=== PATIENT | female | born 1995 | race Caucasian/White ===

== ENCOUNTER 2018-05-30 14:23 | Emergency (ER) | payer OTHER, SELFPAY ==
[2018-05-30] MEDS: methylPREDNISolone 125 MG/2 ML VIAL IV (14:25)
[2018-05-30] MEDS: FAMOTIDINE 20 MG/50 ML PIGGYBACK 200 MG IV (14:25)
[2018-05-30 14:34] VITALS: BP 127/77; PULSE 87; RESP 22; TEMP 36.7; O2SAT 100; BMI 29.0
[2018-05-30] MEDS: EPINEPHrine 1 MG/ML AMPUL 0.3 MG IM (14:40)
[2018-05-30] MEDS: SODIUM CHLORIDE 0.9% 1,000 ML 1000 ML IV (14:41)
[2018-05-30] MEDS: ONDANSETRON 4 MG/2 ML INJ IV (14:41)
[2018-05-30 14:45] VITALS: BP 88/75; PULSE 78; RESP 18; O2SAT 98
[2018-05-30 15:00] VITALS: BP 137/59; PULSE 78; RESP 16; O2SAT 98
[2018-05-30 15:44] VITALS: BP 118/49; PULSE 79; RESP 14; O2SAT 98
--- NOTE | 2018-05-30 15:46 | ED.ALLEREA ---
HPI - Allergic Reaction General Chief complaint: Allergic Reaction Stated complaint: TROUBLE BREATHING,ALLERGIC REACTION Time Seen by Provider: 05/30/18 14:42 Source: patient Mode of arrival: ambulatory Limitations: no limitations History of Present Illness HPI narrative: Patient is a 23-year-old female with history of anaphylaxis presenting with difficulty breathing and sore throat. She had her hair dyed and cut today. She does have reaction to red dye appear it started with hives when she had throat pain. She is itching all over. She does not feel like her lips or tongue are swollen she does not have a hoarse voice MD complaint: allergic reaction Related Data Home Medications Medication Instructions Recorded Confirmed methylphenidate HCl [Concerta] 27 mg PO DAILY 05/30/18 05/30/18 Previous Rx's Medication Instructions Recorded epinephrine 0.3 mg IM Q10M PRN #1 each 05/30/18 Allergies Allergy/AdvReac Type Severity Reaction Status Date / Time diphenhydramine Allergy Verified 05/30/18 14:34 [From Devan] Review of Systems Review of Systems GENERAL: Denies chills, fatigue, malaise, fever, sweats, travel HEENT: Sore throat, see HPI RESPIRATORY: Denies dyspnea, cough, wheezing, hemoptysis, sputum. CARDIOVASCULAR: Denies chest pain, palpitations, orthopnea, edema GASTROINTESTINAL: Denies nausea, vomiting, abdominal pain, diarrhea, constipation, melena. : Denies dysuria, frequency, incontinence, hematuria, urinary retention, flank pain. MUSCULOSKELETAL: Denies weakness, joint pain, or bony pain SKIN: Hives, itching NEUROLOGIC: Denies weakness, dizziness, headache, numbness, change in speech, confusion PSYCHIATRIC: No concerning psychosocial issues. 12 point review of systems is negative except for those stated above and HPI Exam Initial Vital Signs Initial Vital Signs: Vital Signs Temperature 98.0 F 05/30/18 14:34 Pulse Rate 87 05/30/18 14:34 Respiratory Rate 22 05/30/18 14:34 Blood Pressure 127/77 05/30/18 14:34 Pulse Oximetry 100 05/30/18 14:34 GENERAL: Appears in moderate distress erythema is she HEENT: Head atraumatic,EOMI, pupils reactive, no swelling of tongue or lip, no hoarseness of voice CARDIOVASCULAR: Regular rate and rhythm without murmurs, rubs or gallops. RESPIRATORY: Breath sounds equal bilaterally, no wheezes rales or rhonchi. No stridor ABDOMEN: Soft, nontender. Normoactive bowel sounds all 4 quadrants. No guarding or rebound. EXTREMITIES: Normal range of motion, no clubbing or edema. Neurovascularly intact NEUROLOGICAL: Alert and oriented x4.Normal gait and speech. SKIN: Diffuse hives all over Course Orders Ordered: Discontinued Medications Epinephrine HCl (Adrenalin) 0.3 mg IM NOW ONE Stop: 05/30/18 14:37 Last Admin: 05/30/18 14:40 Dose: 0.3 mg Famotidine (Pepcid) 20 mg in 50 mls @ 200 mls/hr IV NOW ONE Stop: 05/30/18 14:50 Last Infusion: 05/30/18 14:47 Dose: 0 mls/hr Admin: 05/30/18 14:25 Dose: 200 mls/hr Sodium Chloride (Normal Saline 0.9%) 1,000 mls @ 1,000 mls/hr IV BOLUS ONE Stop: 05/30/18 15:36 Last Infusion: 05/30/18 15:44 Dose: 0 mls/hr Admin: 05/30/18 14:41 Dose: 1,000 mls/hr Methylprednisolone (Solu-Medrol 125 Mg Vial) 125 mg IV NOW ONE Stop: 05/30/18 14:42 Last Admin: 05/30/18 14:25 Dose: 125 mg Ondansetron HCl (Zofran) 4 mg IV NOW ONE Stop: 05/30/18 14:37 Last Admin: 05/30/18 14:41 Dose: 4 mg Vital Signs - 8 hr 05/30/18 14:34 05/30/18 14:45 05/30/18 15:00 Temperature 98.0 F Pulse Rate 87 78 78 Respiratory Rate 22 18 16 Blood Pressure 127/77 Blood Pressure [Left Arm] 88/75 L 137/59 L Pulse Oximetry 100 98 98 05/30/18 15:44 Temperature Pulse Rate 79 Respiratory Rate 14 Blood Pressure Blood Pressure [Left Arm] 118/49 L Pulse Oximetry 98 MDM - Allergic Reaction MDM Narrative Medical decision making narrative: Patient is monitored she overall is feeling much better. She feels ready and able to go home. I did write her for an EpiPen which she apparently has never had before. She is instructed how to use it. Discharge Plan Departure Patient Disposition: Home Clinical Impression: Anaphylaxis Discharge Date/Time: 05/30/18 16:04 Interventions: ED Discharge Assessment Last Done: 05/30/18 16:02 Instructions: Anaphylaxis Activity Restrictions/Additional Instructions: *You have been diagnosed with anaphylaxis *What to do: Recommend allergy testing if you have not yet done so *Continue to take medications as directed EpiPen give in the thigh if he should have throat swelling or difficulty breathing and allergic reaction *Follow up with your primary care provider in 2-3 days *Return to ER if you should have if you give yourself epi, difficulty breathing tongue swelling lip swelling or any new, worsening or concerning symptoms Prescriptions: New epinephrine 0.3 mg/0.3 mL auto-injector 0.3 mg IM Q10M PRN (Reason: anaphylaxis) Qty: 1 RF: 0 No Action methylphenidate HCl [Concerta] 27 mg tablet extended release 24hr 27 mg PO DAILY RF: 0 Referrals: Javan Lynn MD [Primary Care Provider] -
== END 2018-05-30 16:04 | disposition home or self-care (01) ==
PROVIDERS: Emergency Provider Emergency Medicine; Family Provider Family Medicine; PCP Family Medicine
DX: T78.2XXA Anaphylactic shock, unspecified, initial encounter (principal)
CPT/HCPCS: 36591; 96361; 96365; 96372; 96375; 99283; 99284; J0171; J2405; J2930

== ENCOUNTER → 2018-06-14 16:42 | Outpatient (CLI) | payer OTHER, SELFPAY | PROVIDERS: Family Provider Family Medicine; PCP Family Medicine; Visit Provider Allergy & Immunology | DX: T78.2XXA Anaphylactic shock, unspecified, initial encounter (principal) | CPT/HCPCS: 36415; 83520 ==

== ENCOUNTER 2018-06-19 18:36 | Emergency (ER) | payer OTHER, SELFPAY ==
[2018-06-19] VITALS (8 sets, daily range): BP systolic 91–155; BP diastolic 55–87; PULSE 69–91; RESP 14–26; TEMP 37; O2SAT 95–100
--- NOTE | 2018-06-19 18:50 | DI.RAD.S_ITS ---
PROCEDURE: XR CHEST 2V INDICATIONS: Chest pain. TECHNIQUE: 2 views of the chest were acquired. COMPARISON: None. FINDINGS: Surgical changes and devices: None. Lungs and pleura: No pleural effusions or pneumothorax. Lungs are clear. Mediastinum: Mediastinal contours are normal. Heart size is normal. Bones and chest wall: No suspicious bony abnormalities. Soft tissues appear unremarkable. IMPRESSION: No acute cardiopulmonary disease. Dictated by: Scott Tsai M.D. on 06/19/2018 at 19:09 Approved by: Scott Tsai M.D. on 06/19/2018 at 19:12
--- NOTE | 2018-06-19 18:52 | ED_ITS ---
HPI - Chest Pain General Chief Complaint: Chest Pain Stated Complaint: CHEST PAIN Time Seen by Provider: 06/19/18 18:51 Source: patient Mode of arrival: ambulatory Limitations: no limitations History of Present Illness HPI narrative: The patient experienced 2 anaphylactic reactions about 3 weeks ago, the reactions happened about 2 days apart. Following the 1st reaction she was not discharged on steroids although she received IV steroids. She has a H/ O an allergic reaction to Benadryl, she has known this since she was young child. She also has a allergy to red dye. Pepcid was used without adverse issues during her treatment of anaphylaxis at this facility. She does any other significant history of allergic reactions preceding the events of 3 weeks ago. There was no obvious ingestion or exposure to precipitate the event. She had not started any new medications. She is currently off all medications. She has seen an apartment leasing consultant, who wants her off steroids and antihistamines permitting future testing. 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 She arrives tonight with substernal chest pain. She tells me she has had a degree of discomfort in the central chest area since the 1st allergic reaction. This evening the pain is increased. The pain has moved to the left side of her chest a little. There is no radiation to the neck, shoulder or back. She has no dyspnea. She denies productive cough or fever. She has no hemoptysis. She does have mild epigastric pain, with nausea but no vomiting. She has no dietary intolerance of which she is aware. She regards herself to be generally good health. She has substernal chest discomfort with some radiation to the left mid chest. She has no dyspnea or cough. She has no hemoptysis. She has no airway discomfort. She has no rash. She has nausea, no vomiting. Related Data Previous Rx's Medication Instructions Recorded epinephrine 0.3 mg IM Q10M PRN #1 each 05/30/18 Allergies Allergy/AdvReac Type Severity Reaction Status Date / Time diphenhydramine Allergy Severe Hives Verified 06/19/18 18:44 [From Benadryl] Review of Systems Review of Systems All systems reviewed & are unremarkable except as noted in HPI and below Constitutional Denies chills, Denies fever(s), Reports headache(s), Denies lethargy and Denies weakness Eyes Denies blurry vision, Denies eye discharge, Denies irritation and Denies loss of vision ENT Ears, Nose, Mouth, and Throat: Denies change in voice, Denies facial pain, Reports headache(s), Denies neck pain and Denies sore throat Cardiovascular Reports as per HPI, Reports chest pain, Denies irregular heart rhythm, Denies lightheadedness, Denies palpitations, Denies dyspnea, Denies dyspnea on exertion and Denies orthopnea Respiratory Reports cough (Nonproductive), Denies dyspnea, Denies dyspnea on exertion and Denies wheezing Gastrointestinal Gastrointestinal: Reports abdominal pain (Epigastric tenderness.), Denies bloating, Reports loose stools and Denies vomiting Genitourinary Denies dysuria Musculoskeletal Denies neck pain Integumentary/Breasts Denies pruritus, Denies erythema, Denies rash and Denies wounds Neurologic Reports headache(s), Denies loss of vision and Denies weakness Endocrine Denies palpitations Allergic/Immunologic Denies wheezing PFSH Medical History Anaphylaxis (Acute) History of pre-eclampsia (Acute) No significant past surgical history (Acute) Social History Smoking Status: Never smoker Exam Initial Vital Signs Initial Vital Signs: Vital Signs Temperature 98.6 F 06/19/18 18:39 Pulse Rate 86 06/19/18 18:39 Respiratory Rate 18 06/19/18 18:39 Blood Pressure 155/87 H 06/19/18 18:39 Pulse Oximetry 100 06/19/18 18:39 Const General: cooperative, healthy appearing, comfortable and well developed Nutritional Appearance: well nourished Orientation: alert, awake, oriented x3 and not confused [facility] Head: normocephalic and atraumatic Nose: No nasal discharge Face and sinus: sinuses nontender, face symmetric and no sinus tenderness Mouth: oral mucosae normal and moist mucous membranes Teeth and gingiva: dentition normal Throat: tonsils normal and uvula midline Eyes General: appearance normal, both eyes and all related structures Eyelids: eyelids normal Conjunctivae: conjunctivae normal Sclera: sclerae normal Neck Neck: normal visual inspection, trachea midline and No lymphadenopathy Chest Chest: other (Slight tenderness to the mid sternal area with palpation.) Resp Effort & Inspection: normal respiratory effort, able to speak in complete sentences, no respiratory distress and no use of accessory muscles Auscultation: clear to auscultation bilaterally, no rales, no rhonchi and no wheezes Cardio Rate: regular rate Rhythm: regular rhythm Heart Sounds: S1 normal, S2 normal, no click, no gallops, no murmurs and no rubs Pulses: normal peripheral pulses GI Inspection: non-distended Palpation: soft, no hepatosplenomegaly, No guarding, No pulsatile mass and tender (Mild tenderness in the epigastric region without guarding or rebound.) Auscultation: normal bowel sounds Back/Spine/Pelvis Back: No CVA tenderness Skin General: no rashes or lesions noted, No jaundice and No petechiae Neuro General: alert, oriented x3, gait normal and no focal motor deficits Speech: speech normal Extrem General: full ROM, no clubbing, cyanosis or edema, no pedal edema and no calf tenderness Course Course Narrative: The patient was recently seen here for 1 of 2 allergic reaction/anaphylaxis events. She is not presenting with allergic reaction type symptoms at this time. She has had chest discomfort since the recent events. The chest discomfort has increased today. The patient requested a tryptase level. That lab is a send out from this facility with a 3-5 day turn around time. She is not having an allergic reaction, the test would be of little use at this time. A tryptase was ordered at the time of her last visit when she was treated as an allergic reaction. That tryptase level was normal. Initial lab testing and CXR were benign, a D-dimer was added. The D-dimer was subtly elevated. Although the workup was otherwise benign and she has no obvious risk for PE, a CTA of the chest was done due to the persistent nature of her discomfort. That test showed only mild reactive adenopathy, probably not a source of her pain. Due to the location and nature of her pain, I think she may have esophagitis. However she did not improve with GI cocktail or Protonix during the time of her ER stay. From the workup there is no evidence of an acute coronary event, infection/pneumonia, PE, mass or obvious cardiopulmonary disease. The etiology of her discomfort remains unclear, however musculoskeletal versus esophageal discomfort seen probable. She has an EpiPen at home. The patient became irritated at what she perceived was inadequate discussion of the D-dimer. She was made aware that rest her labs are benign, the chest x-ray and 2 EKGs are normal. The minimal adenopathy in the chest CT was discussed. The lack of immediate life-threatening disease was discussed. I tried to suggest she also keep Pepcid and perhaps steroids at home. My attempts to engage her with what I considered pertinent discharge information regarding management of allergic reactions was significantly blunted by the patient's repeat interruptions, questioning my knowledge of anaphylaxis and mast cell disease, and rejection of the discussion. The medications were not prescribed. Orders Ordered: ED Orders 06/19/18 18:50 XR chest 2V Stat EKG-12 Lead Stat 06/19/18 19:07 Complete Blood Count AUTO DIFF Stat Comprehensive Metabolic Panel Stat D Dimer Stat Lipase Stat Partial Thromboplastin Time Stat Prothrombin Time INR Stat Troponin & CK Cardiac Panel Stat 06/19/18 20:54 CT angio chest PE protocol Stat Discontinued Medications Al Hydrox/Mg Hydrox/Simethicone 20 ml/ Lidocaine HCl 15 ml 0 ml PO NOW ONE Stop: 06/19/18 19:28 Last Admin: 06/19/18 19:43 Dose: 20 ml Sodium Chloride (Normal Saline 0.9%) 1,000 mls @ 250 mls/hr IV CONT MARSHA Last Infusion: 06/19/18 23:31 Dose: 0 mls/hr Admin: 06/19/18 21:02 Dose: 250 mls/hr Ketorolac Tromethamine (Toradol) 30 mg IV NOW ONE Stop: 06/19/18 21:56 Last Admin: 06/19/18 23:31 Dose: Not Given Ondansetron HCl (Zofran) 4 mg IV NOW ONE Stop: 06/19/18 19:14 Last Admin: 06/19/18 19:18 Dose: 4 mg Pantoprazole Sodium (Protonix) 40 mg IV NOW ONE Stop: 06/19/18 19:58 Last Admin: 06/19/18 20:06 Dose: 40 mg Vital Signs - 8 hr 06/19/18 18:39 06/19/18 19:32 06/19/18 20:08 Temperature 98.6 F Pulse Rate 86 80 91 H Respiratory Rate 18 19 26 H Blood Pressure 155/87 H Blood Pressure [Right Arm] 124/55 L 116/63 Pulse Oximetry 100 96 97 06/19/18 21:07 06/19/18 21:32 06/19/18 21:52 Temperature Pulse Rate 82 79 86 Respiratory Rate 21 19 14 Blood Pressure Blood Pressure [Right Arm] 119/61 91/69 123/71 Pulse Oximetry 99 100 98 06/19/18 22:45 06/19/18 23:33 Temperature Pulse Rate 69 70 Respiratory Rate 22 14 Blood Pressure 128/72 Blood Pressure [Right Arm] 138/57 L Pulse Oximetry 95 95 MDM - Chest Pain Lab Data D-dimer 325. Result diagrams: 06/19/18 19:07 06/19/18 19:07 Lab Results 06/19/18 06/19/18 06/19/18 Range/Units 19:07 19:07 19:07 WBC 7.3 (4.5-11.0) X10^3/uL RBC 4.18 (4.0-5.2) X10^6/uL Hgb 13.1 (12.0-16.0) g/dL Hct 37.5 (36-46) % MCV 89.8 (80-100) fL MCH 31.3 (26-34) PG MCHC 34.9 (30-36) % RDW 15.4 H (11.6-14.8) % Plt Count 199 (150-400) X10^3/uL Neut % (Auto) 59.5 (50-75) % Lymph % (Auto) 31.6 (25-40) % [place] % (Auto) 6.7 (3-14) % Eos % (Auto) 1.7 L (2-4) % Baso % (Auto) 0.5 (0-2) % Neut # (Auto) 4400 (9812-7657) /uL PT 11.3 (10.1-12.7) SECONDS INR 1.0 (0.9-1.3) APTT 37 H (26.4-36.2) SECONDS D-Dimer (<230) ng/mL Sodium 142 (137-145) mmol/L Potassium 3.9 (3.4-5.1) mmol/L Chloride 105 (98-107) mmol/L Carbon Dioxide 24 (22-32) mmol/L BUN 10 (7-17) mg/dL Creatinine 0.80 (0.52-1.04) mg/dL Estimated GFR > 60.0 (>60) mL/min BUN/Creatinine Ratio 12.5 (6-22) Glucose 91 (70-100) mg/dL Calcium 10.0 (8.4-10.2) mg/dL Total Bilirubin 1.1 (0.2-1.3) mg/dL AST 23 (14-36) IU/L ALT 23 (9-52) IU/L Alkaline Phosphatase 71 (38-126) U/L Total Creatine Kinase 81 (30-135) U/L CK-MB (CK-2) TNP CK-MB (CK-2) Rel Index TNP Troponin I < 0.012 (0.01-0.034) ng/mL Total Protein 7.6 (6.3-8.2) g/dL Albumin 4.9 (3.5-5.0) g/dL Globulin 2.7 (1.7-4.1) g/dL Albumin/Globulin Ratio 1.8 (1.0-2.8) Lipase 48 (23-300) U/L 12/17/18 Range/Units 19:07 WBC (4.5-11.0) X10^3/uL RBC (4.0-5.2) X10^6/uL Hgb (12.0-16.0) g/dL Hct (36-46) % MCV (80-100) fL MCH (26-34) PG MCHC (30-36) % RDW (11.6-14.8) % Plt Count (150-400) X10^3/uL Neut % (Auto) (50-75) % Lymph % (Auto) (25-40) % [place] % (Auto) (3-14) % Eos % (Auto) (2-4) % Baso % (Auto) (0-2) % Neut # (Auto) (7704-2844) /uL PT (10.1-12.7) SECONDS INR (0.9-1.3) APTT (26.4-36.2) SECONDS D-Dimer 325 H (<230) ng/mL Sodium (137-145) mmol/L Potassium (3.4-5.1) mmol/L Chloride (98-107) mmol/L Carbon Dioxide (22-32) mmol/L BUN (7-17) mg/dL Creatinine (0.52-1.04) mg/dL Estimated GFR (>60) mL/min BUN/Creatinine Ratio (6-22) Glucose (70-100) mg/dL Calcium (8.4-10.2) mg/dL Total Bilirubin (0.2-1.3) mg/dL AST (14-36) IU/L ALT (9-52) IU/L Alkaline Phosphatase (38-126) U/L Total Creatine Kinase (30-135) U/L CK-MB (CK-2) CK-MB (CK-2) Rel Index Troponin I (0.01-0.034) ng/mL Total Protein (6.3-8.2) g/dL Albumin (3.5-5.0) g/dL Globulin (1.7-4.1) g/dL Albumin/Globulin Ratio (1.0-2.8) Lipase (23-300) U/L Imaging Data Chest x-ray: Radiologist's impression: Normal CT scan - chest: Radiologist's impression: [address] [address] [address] Scan Report Signed Patient: Manisha Hope MR#: [id number] : 1995 Acct:[id number] Age/Sex: 23 / F Date of Service: 06/19/18 Loc: ED Accession Number: [id number] Procedure: CT angio chest PE protocol Ordering Provider: Angel Poe M.D. PROCEDURE: CT ANGIO CHEST PE PROTOCOL INDICATIONS: atypical chest pain TECHNIQUE: After the administration of intravenous contrast, 2 mm thick sections acquired from the pulmonary apices to the posterior costophrenic angles. 3-dimensional maximum intensity projection (MIP) coronal and sagittal reformats were then acquired through the thorax. For radiation dose reduction, the following was used: automated exposure control, adjustment of mA and/or kV according to patient size. COMPARISON: None. FINDINGS: Image quality: Excellent. Pulmonary arteries: Pulmonary arteries are normal in size, and demonstrate no intraluminal filling defects to suggest central pulmonary embolism. Lungs and pleura: Lungs are clear. No pleural effusions or pneumothorax. Central and peripheral airways are patent. Mediastinum: Heart size is normal, without pericardial effusion. There is mild mediastinal and supraclavicular lymphadenopathy. Thoracic aorta is normal in caliber and enhancement. Hazy soft tissue in the anterior mediastinum most consistent with residual thymic tissue. Bones and chest wall: No suspicious bony lesions. Ribs and thoracic spine appear intact throughout. No axillary adenopathy. Abdomen: Visualized upper abdominal solid organs appear normal in the early arterial phase of enhancement. IMPRESSION: #1. No segmental or larger pulmonary emboli. #2. Mild mediastinal and supraclavicular lymphadenopathy, which is nonspecific and possibly reactive. Clinical correlation suggested. Dictated by: Scott Tsai M.D. on 06/19/2018 at 22:31 Approved by: Scott Tsai M.D. on 06/19/2018 at 22:43 ECG Data Attestation: I personally reviewed and interpreted this ECG as follows: (Normal sinus rhythm rate 78 bpm. Voltage criteria consistent with LVH. Normal ST T wave segments. No interval changes, no ectopy.) Discharge Plan Departure Patient Disposition: Home Clinical Impression: Atypical chest pain Discharge Date/Time: 06/19/18 23:49 Interventions: ED Discharge Assessment Last Done: 06/19/18 23:33 Instructions: DI for Atypical Chest Pain Activity Restrictions/Additional Instructions: The chest pain is of a an duration matching the time of your reactions. There is no evidence of pulmonary infection, active cardiac disease, blood clots, or tumors in your chest to cause the discomfort. By your clinical presentation there is no evidence of an allergic reaction at this moment. Your esophagus may or may not be a source of the discomfort. The one finding, as we discussed on CT, was mild enlargement of lymph nodes, this is likely reactive lymphadenopathy. You have no clinical evidence of significant active infection. The lymph nodes are only mildly enlarged, and not likely a source of pain. If you have recurrence of an allergic reaction, use your Epi pen and call 911. Consider having Pepcid available at home. Prescriptions: No Action epinephrine 0.3 mg/0.3 mL auto-injector 0.3 mg IM Q10M PRN (Reason: anaphylaxis) Qty: 1 RF: 0
[2018-06-19 19:13] LABS: Add Manual Diff / Slide Review NO; Basophils Percent Auto 0.5 % (0-2); Eosinophils Percent Auto 1.7 % (2-4); Hematocrit 37.5 % (36-46); Hemoglobin 13.1 g/dL (12.0-16.0); Lymphocytes Percent Auto 31.6 % (25-40); Mean Corpuscular HGB Conc 34.9 % (30-36); Mean Corpuscular Hemoglobin 31.3 PG (26-34); Mean Corpuscular Volume 89.8 fL (80-100); Monocytes Percent Auto 6.7 % (3-14); Neutrophils Absolute Auto 4400 /uL (1500-7000); Neutrophils Percent Auto 59.5 % (50-75); Platelet Count 199 X10^3/uL (150-400); Red Blood Cell Count 4.18 X10^6/uL (4.0-5.2); Red Cell Distribution Width 15.4 % (11.6-14.8); White Blood Cell Count 7.3 X10^3/uL (4.5-11.0)
[2018-06-19] MEDS: ONDANSETRON 4 MG/2 ML INJ IV (19:18)
[2018-06-19 19:20] LABS: Prothrombin Time 11.3 SECONDS (10.1-12.7)
[2018-06-19 19:23] LABS: PTT Partial Thromboplastin Tim 37 SECONDS (26.4-36.2)
[2018-06-19 19:25] LABS: Alanine Aminotransferase 23 IU/L (9-52); Albumin 4.9 g/dL (3.5-5.0); Albumin Globulin Ratio 1.8 (1.0-2.8); Alkaline Phosphatase 71 U/L (38-126); Aspartate Aminotransferase 23 IU/L (14-36); BUN Creatinine Ratio 12.5 (6-22); Bilirubin Total 1.1 mg/dL (0.2-1.3); Blood Urea Nitrogen 10 mg/dL (7-17); Carbon Dioxide 24 mmol/L (22-32); Chloride 105 mmol/L (98-107); Creatine Kinase 81 U/L (30-135); Estimated Glomerular Filt Rate > 60.0 mL/min (>60); Globulin 2.7 g/dL (1.7-4.1); Glucose 91 mg/dL (70-100); HEMOLYSIS < 15 (0-50); Lipase 48 U/L (23-300); Potassium 3.9 mmol/L (3.4-5.1); Sodium 142 mmol/L (137-145); Total Protein 7.6 g/dL (6.3-8.2)
[2018-06-19 19:36] LABS: Troponin I < 0.012 ng/mL (0.01-0.034)
[2018-06-19] MEDS: MAG HYDROX/ALUMINUM/SIMETH SUS 20 ML, LIDOCAINE VISCOUS 2% 15 ML PO (19:43)
--- NOTE | 2018-06-19 19:51 | PC.NURSE ---
Pt reports pain still 5/10. Medicated with GI cocktail per order. NAD, will monitor.
--- NOTE | 2018-06-19 19:51 | PC.NURSE ---
Pt attempting to drink all of the GI cocktail, she states I can feel where it's numbing and the pain is next to it. She motioned to midline when she said I feel where it's numbing and gestured to the left of midline when stating the pain is next to it.
[2018-06-19] MEDS: PANTOPRAZOLE 40 MG VIAL IV (20:06)
[2018-06-19 20:19] LABS: D Dimer 325 ng/mL (<230)
--- NOTE | 2018-06-19 20:54 | DI.CT.S_ITS ---
PROCEDURE: CT ANGIO CHEST PE PROTOCOL INDICATIONS: atypical chest pain TECHNIQUE: After the administration of intravenous contrast, 2 mm thick sections acquired from the pulmonary apices to the posterior costophrenic angles. 3-dimensional maximum intensity projection (MIP) coronal and sagittal reformats were then acquired through the thorax. For radiation dose reduction, the following was used: automated exposure control, adjustment of mA and/or kV according to patient size. COMPARISON: None. FINDINGS: Image quality: Excellent. Pulmonary arteries: Pulmonary arteries are normal in size, and demonstrate no intraluminal filling defects to suggest central pulmonary embolism. Lungs and pleura: Lungs are clear. No pleural effusions or pneumothorax. Central and peripheral airways are patent. Mediastinum: Heart size is normal, without pericardial effusion. There is mild mediastinal and supraclavicular lymphadenopathy. Thoracic aorta is normal in caliber and enhancement. Hazy soft tissue in the anterior mediastinum most consistent with residual thymic tissue. Bones and chest wall: No suspicious bony lesions. Ribs and thoracic spine appear intact throughout. No axillary adenopathy. Abdomen: Visualized upper abdominal solid organs appear normal in the early arterial phase of enhancement. IMPRESSION: #1. No segmental or larger pulmonary emboli. #2. Mild mediastinal and supraclavicular lymphadenopathy, which is nonspecific and possibly reactive. Clinical correlation suggested. Dictated by: Scott sTai M.D. on 06/19/2018 at 22:31 Approved by: Scott Tsai M.D. on 06/19/2018 at 22:43
[2018-06-19] MEDS: SODIUM CHLORIDE 0.9% 1,000 ML 250 ML IV (21:02)
--- NOTE | 2018-06-19 21:48 | PC.NURSE ---
Pt reported increasing pain. Now a 7/10 and radiating to the left chest. Provider notified, repeat ECG requested.
== END 2018-06-19 23:49 | disposition home or self-care (01) ==
PROVIDERS: Emergency Provider Emergency Medicine; Family Provider Family Medicine; PCP Family Medicine
DX: R07.89 Other chest pain (principal)
CPT/HCPCS: 36591; 71046; 71275; 80053; 82550; 83690; 84484; 85025; 85379; 85610; 85730; 93005; 96361; 96374; 96375; 99284; 99285; C9113; J2405; Q9967

== ENCOUNTER 2018-09-23 08:13 | Emergency (ER) | payer OTHER, SELFPAY ==
[2018-09-23 08:15] VITALS: BMI 27.4
[2018-09-23 08:37] VITALS: BP 113/56; PULSE 72; RESP 16; TEMP 36.6; O2SAT 97; BMI 27.4
[2018-09-23 09:02] LABS: Appearance Urine UA CLEAR; Bilirubin Urine UA NEGATIVE (NEGATIVE); Color Urine UA YELLOW; Glucose Urine UA NEGATIVE (Negative); Ketones Urine UA NEGATIVE (NEGATIVE); Leukocyte Esterase Urine UA TRACE (NEGATIVE); Nitrite Urine UA NEGATIVE (Negative); Occult Blood Urine UA 3+ (Negative); Protein Urine UA NEGATIVE (Negative); Urobilinogen Urine UA 0.2 E.U./dL (0.2); pH Urine UA 6.5 (4.5-8.0)
[2018-09-23 09:04] LABS: Pregnancy Test Urine Positive (Negative)
--- NOTE | 2018-09-23 09:07 | ED.FEMALEGU ---
HPI - Female Genitourinary General Chief complaint: Urogenital-Female Stated complaint: kidney infection Time Seen by Provider: 09/23/18 08:39 Source: patient Mode of arrival: ambulatory Limitations: no limitations History of Present Illness HPI Narrative: Patient is a 23-year-old female presents with kidney infection. She says she has had kidney pain in urinary urgency ongoing for about 1 week. She has had chills for the last 24 hr. She saw her PCP yesterday started her on Bactrim she has taken 1 dose. This morning she got up to use the restroom and she suddenly collapsed in the bathroom. Brief loss of consciousness no injury from the fall. Overall not feeling great. Pain in her left flank area is non radiating around to the front. 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 She has had GI bleeding off and on for the last 4 months. She also states she had a miscarriage last week. She was approximately 11 weeks. She was seen evaluated by her OBGYN. She initially had cramping and bleeding. She says overall that has improved. She has no vaginal discharge. MD Complaint: dysuria and UTI Onset (ago): week(s) (1) Female Urogenital Radiation: L Flank Severity: mild Related Data Previous Rx's Medication Instructions Recorded epinephrine 0.3 mg IM Q10M PRN #1 each 05/30/18 Allergies Allergy/AdvReac Type Severity Reaction Status Date / Time diphenhydramine Allergy Severe Hives Verified 09/23/18 08:21 [From Benadryl] Review of Systems Review of Systems ROS Unobtainable: All systems reviewed & are unremarkable except as noted in HPI and below Constitutional Reports body ache(s), Reports chills and Denies fever(s) Eyes Denies change in vision, Denies eye discharge, Denies irritation and Denies loss of vision Cardiovascular Denies chest pain, Reports syncope, Denies irregular heart rhythm, Denies lightheadedness, Denies palpitations, Denies dyspnea, Denies dyspnea on exertion and Denies orthopnea Respiratory Denies cough, Denies dyspnea, Denies dyspnea on exertion and Denies wheezing Gastrointestinal Gastrointestinal: Denies abdominal pain, Denies diarrhea, Denies nausea and Denies vomiting Genitourinary Reports flank pain (Left) Musculoskeletal Denies back pain, Denies muscle weakness, Denies numbness and Denies tingling Integumentary/Breasts Denies pruritus, Denies erythema, Denies rash and Denies wounds Neurologic Reports syncope, Denies loss of vision, Denies numbness and Denies tingling Endocrine Denies palpitations Allergic/Immunologic Denies wheezing [facility] Medical History Anaphylaxis (Acute) History of pre-eclampsia (Acute) No significant past surgical history (Acute) Social History Smoking Status: Never smoker Social History Smoking Status: Never smoker Exam Initial Vital Signs Initial Vital Signs: Vital Signs Temperature 97.8 F 09/23/18 08:37 Pulse Rate 72 09/23/18 08:37 Respiratory Rate 16 09/23/18 08:37 Blood Pressure 113/56 L 09/23/18 08:37 Pulse Oximetry 97 09/23/18 08:37 GENERAL: Well-appearing, well-nourished and in no acute distress. HEENT: Head atraumatic,EOMI, pupils reactive, face symmetric, moist mucous membranes CARDIOVASCULAR: Regular rate and rhythm without murmurs, rubs or gallops. RESPIRATORY: Breath sounds equal bilaterally, no wheezes rales or rhonchi. ABDOMEN: Soft, nontender. Normoactive bowel sounds all 4 quadrants. No guarding or rebound. : Left CVA tenderness EXTREMITIES: Normal range of motion, no clubbing or edema. Neurovascularly intact NEUROLOGICAL: Alert and oriented x4.Normal gait and speech. SKIN: Warm, dry, no laceration, no petechiae, no rashes or lesions. Course Orders Ordered: ED Orders 09/23/18 08:24 EKG-12 Lead Routine 09/23/18 08:30 Basic Metabolic Panel Stat Complete Blood Count AUTO DIFF Stat 09/23/18 08:53 Test Urine Stat UA Complete [Urinalysis and Microscopic] Stat Urine Culture Stat 09/23/18 10:46 US pelvic complete Stat Discontinued Medications Sodium Chloride (Normal Saline 0.9%) 1,000 mls @ 1,000 mls/hr IV BOLUS ONE Stop: 09/23/18 10:06 Last Infusion: 09/23/18 10:43 Dose: 0 mls/hr Admin: 09/23/18 09:29 Dose: 1,000 mls/hr Consultations Consultation #1: Dr. Garcia, on-call for Dr. Paige, at this time no reason for D&C. No bleeding or significant pain treat infection. Time: 12:13 Vital Signs - 8 hr 09/23/18 08:37 09/23/18 10:00 09/23/18 10:30 Temperature 97.8 F Pulse Rate 72 73 66 Respiratory Rate 16 18 16 Blood Pressure 113/56 L Blood Pressure [Left Arm] 126/70 123/55 L Pulse Oximetry 97 100 100 09/23/18 11:00 09/23/18 12:25 Temperature Pulse Rate 66 65 Respiratory Rate 18 16 Blood Pressure Blood Pressure [Left Arm] 129/66 131/72 Pulse Oximetry 99 MDM - Female Genitourinary Lab Data Attestation: I reviewed the patient's lab results. Result diagrams: 09/23/18 08:30 09/23/18 08:30 Lab Results 09/23/18 09/23/18 09/23/18 Range/Units 08:30 08:30 08:53 WBC 5.6 (4.5-11.0) X10^3/uL RBC 3.68 L (4.0-5.2) X10^6/uL Hgb 11.5 L (12.0-16.0) g/dL Hct 33.5 L (36-46) % MCV 90.9 (80-100) fL MCH 31.3 (26-34) PG MCHC 34.4 (30-36) % RDW 16.3 H (11.6-14.8) % Plt Count 219 (150-400) X10^3/uL Neut % (Auto) 60.4 (50-75) % Lymph % (Auto) 30.5 (25-40) % [place] % (Auto) 6.7 (3-14) % Eos % (Auto) 1.8 L (2-4) % Baso % (Auto) 0.6 (0-2) % Neut # (Auto) 3400 (6216-0859) /uL Lymph # (Auto) 1700 (9975-7379) /uL [place] # (Auto) 400 (0-900) /uL Eos # (Auto) 100 (0-450) /uL Baso # (Auto) 0 (0-100) /uL Sodium 140 (137-145) mmol/L Potassium 4.3 (3.4-5.1) mmol/L Chloride 108 H (98-107) mmol/L Carbon Dioxide 23 (22-32) mmol/L BUN 15 (7-17) mg/dL Creatinine 0.70 (0.52-1.04) mg/dL Estimated GFR > 60.0 (>60) mL/min BUN/Creatinine Ratio 21.4 (6-22) Glucose 100 (70-100) mg/dL Calcium 9.7 (8.4-10.2) mg/dL Urine Color Urine Appearance Urine pH (4.5-8.0) Ur Specific [place] (1.000-1.035) Urine Protein (Negative) Urine Glucose (UA) (Negative) g/dL Urine Ketones (NEGATIVE) Urine Occult Blood (Negative) Urine Nitrate (Negative) Urine Bilirubin (NEGATIVE) Urine Urobilinogen (0.2) E.U./dL Ur Leukocyte Esterase (NEGATIVE) Urine RBC (0-5/HPF) Urine WBC (0-5/HPF) Ur Squamous Epith Cells Urine Bacteria (None) Ur Culture Indicated? Urine Test Positive H (Negative) 09/23/18 Range/Units 08:53 WBC (4.5-11.0) X10^3/uL RBC (4.0-5.2) X10^6/uL Hgb (12.0-16.0) g/dL Hct (36-46) % MCV (80-100) fL MCH (26-34) PG MCHC (30-36) % RDW (11.6-14.8) % Plt Count (150-400) X10^3/uL Neut % (Auto) (50-75) % Lymph % (Auto) (25-40) % [place] % (Auto) (3-14) % Eos % (Auto) (2-4) % Baso % (Auto) (0-2) % Neut # (Auto) (5597-5718) /uL Lymph # (Auto) (2528-1069) /uL [place] # (Auto) (0-900) /uL Eos # (Auto) (0-450) /uL Baso # (Auto) (0-100) /uL Sodium (137-145) mmol/L Potassium (3.4-5.1) mmol/L Chloride (98-107) mmol/L Carbon Dioxide (22-32) mmol/L BUN (7-17) mg/dL Creatinine (0.52-1.04) mg/dL Estimated GFR (>60) mL/min BUN/Creatinine Ratio (6-22) Glucose (70-100) mg/dL Calcium (8.4-10.2) mg/dL Urine Color Yellow Urine Appearance Clear Urine pH 6.5 (4.5-8.0) Ur Specific Counselor 1.020 (1.000-1.035) Urine Protein Negative (Negative) Urine Glucose (UA) Negative (Negative) g/dL Urine Ketones Negative (NEGATIVE) Urine Occult Blood 3+ H (Negative) Urine Nitrate Negative (Negative) Urine Bilirubin Negative (NEGATIVE) Urine Urobilinogen 0.2 (0.2) E.U./dL Ur Leukocyte Esterase Trace H (NEGATIVE) Urine RBC 1-5/hpf (0-5/HPF) Urine WBC 0-1/hpf (0-5/HPF) Ur Squamous Epith Cells 1-5 /hpf Urine Bacteria Occasional (0-1) (None) Ur Culture Indicated? Specimen cultured Urine Test (Negative) Imaging Data Pelvic ultrasound: Radiologist's impression: PROCEDURE: US PELVIC COMPLETE INDICATIONS: RECENT MISCARRIAGE, SYNCOPE TODAY TECHNIQUE: Real-time scanning was performed of the pelvic organs, with image documentation. Additional endovaginal scanning was necessary due to incomplete visualization of the adnexal and endometrial structures by transabdominal scanning. COMPARISON: None. FINDINGS: Transabdominal scanning: Limited scanning through the kidneys shows no hydronephrosis. No pathologic free abdominal or pelvic fluid. Endovaginal scanning: Uterus: Uterus is normal in size at 7.1 x 4.3 x 5.6 cm. The endometrium measures 13.9 mm in combined thickness. There is increased vascularity in the lesion. Ovaries: Ovaries are normal in size and echotexture. The right ovary measures 3.6 x 1.5 x 2.2 cm. The left ovary measures 2.3 x 1.4 x 1.5 cm. IMPRESSION: Thickened endometrium with hyperemia. Cannot rule out retained products of conception. Dictated by: Dana Moffett M.D. on 09/23/2018 at 12:08 [facility] Narrative Medical decision making narrative: Patient still feels the same. She has been offered Tylenol or Motrin multiple times and has refused. I have explained at length that it will take time for her antibiotics to kick in and help her pain and kidney infection. At this time she likely had a vasovagal reaction due to pain and possibly some slight dehydration. She denies any abdominal pain she states that her vaginal bleeding and cramping has improved overall from last week. No indication of ectopic or retained products. Discharge Plan Departure Patient Disposition: Home Clinical Impression: UTI (urinary tract infection) Qualifiers: Urinary tract infection type: acute pyelonephritis Qualified Code(s): N10 - Acute pyelonephritis Discharge Date/Time: 09/23/18 12:33 Interventions: ED Discharge Assessment Last Done: 09/23/18 12:32 Instructions: DI for Kidney Infection Activity Restrictions/Additional Instructions: *You have been diagnosed with kidney infection, vasovagal reaction *What to do: It will take 2-3 days for antibiotics to kick in and spoke you're kidney infection. He likely passed out from pain in dehydration. At this time increase her fluid intake. *Continue to take medications as directed Continue Bactrim 1 pill twice a day for 5 days as previously prescribed *Follow up with your primary care provider in 2-3 days *Return to ER if you should have recurrent episode of passing out, increasing pain or any new, worsening or concerning symptoms Prescriptions: No Action epinephrine 0.3 mg/0.3 mL auto-injector 0.3 mg IM Q10M PRN (Reason: anaphylaxis) Qty: 1 RF: 0 Referrals: Javan Lynn MD [Primary Care Provider] - Tommy Paige MD [Non-Staff] -
--- NOTE | 2018-09-23 09:10 | ED_ITS ---
HPI - Female Genitourinary General Chief complaint: Urogenital-Female Stated complaint: kidney infection Time Seen by Provider: 09/23/18 08:39 Source: patient Mode of arrival: ambulatory Limitations: no limitations History of Present Illness HPI Narrative: Patient is a 23-year-old female presents with kidney infection. She says she has had kidney pain in urinary urgency ongoing for about 1 week. She has had chills for the last 24 hr. She saw her PCP yesterday started her on Bactrim she has taken 1 dose. This morning she got up to use the restroom and she suddenly collapsed in the bathroom. Brief loss of consciousness no injury from the fall. Overall not feeling great. Pain in her left flank area is non radiating around to the front. 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 She has had GI bleeding off and on for the last 4 months. She also states she had a miscarriage last week. She was approximately 11 weeks. She was seen evaluated by her OBGYN. She initially had cramping and bleeding. She says overall that has improved. She has no vaginal discharge. MD Complaint: dysuria and UTI Onset (ago): week(s) (1) Female Urogenital Radiation: L Flank Severity: mild Related Data Previous Rx's Medication Instructions Recorded epinephrine 0.3 mg IM Q10M PRN #1 each 05/30/18 Allergies Allergy/AdvReac Type Severity Reaction Status Date / Time diphenhydramine Allergy Severe Hives Verified 09/23/18 08:21 [From Benadryl] Review of Systems Review of Systems ROS Unobtainable: All systems reviewed & are unremarkable except as noted in HPI and below Constitutional Reports body ache(s), Reports chills and Denies fever(s) Eyes Denies change in vision, Denies eye discharge, Denies irritation and Denies loss of vision Cardiovascular Denies chest pain, Reports syncope, Denies irregular heart rhythm, Denies lightheadedness, Denies palpitations, Denies dyspnea, Denies dyspnea on exertion and Denies orthopnea Respiratory Denies cough, Denies dyspnea, Denies dyspnea on exertion and Denies wheezing Gastrointestinal Gastrointestinal: Denies abdominal pain, Denies diarrhea, Denies nausea and Denies vomiting Genitourinary Reports flank pain (Left) Musculoskeletal Denies back pain, Denies muscle weakness, Denies numbness and Denies tingling Integumentary/Breasts Denies pruritus, Denies erythema, Denies rash and Denies wounds Neurologic Reports syncope, Denies loss of vision, Denies numbness and Denies tingling Endocrine Denies palpitations Allergic/Immunologic Denies wheezing [facility] Medical History Anaphylaxis (Acute) History of pre-eclampsia (Acute) No significant past surgical history (Acute) Social History Smoking Status: Never smoker Social History Smoking Status: Never smoker Exam Initial Vital Signs Initial Vital Signs: Vital Signs Temperature 97.8 F 09/23/18 08:37 Pulse Rate 72 09/23/18 08:37 Respiratory Rate 16 09/23/18 08:37 Blood Pressure 113/56 L 09/23/18 08:37 Pulse Oximetry 97 09/23/18 08:37 GENERAL: Well-appearing, well-nourished and in no acute distress. HEENT: Head atraumatic,EOMI, pupils reactive, face symmetric, moist mucous membranes CARDIOVASCULAR: Regular rate and rhythm without murmurs, rubs or gallops. RESPIRATORY: Breath sounds equal bilaterally, no wheezes rales or rhonchi. ABDOMEN: Soft, nontender. Normoactive bowel sounds all 4 quadrants. No guarding or rebound. : Left CVA tenderness EXTREMITIES: Normal range of motion, no clubbing or edema. Neurovascularly intact NEUROLOGICAL: Alert and oriented x4.Normal gait and speech. SKIN: Warm, dry, no laceration, no petechiae, no rashes or lesions. Course Orders Ordered: ED Orders 09/23/18 08:24 EKG-12 Lead Routine 09/23/18 08:30 Basic Metabolic Panel Stat Complete Blood Count AUTO DIFF Stat 09/23/18 08:53 Test Urine Stat UA Complete [Urinalysis and Microscopic] Stat Urine Culture Stat 09/23/18 10:46 US pelvic complete Stat Discontinued Medications Sodium Chloride (Normal Saline 0.9%) 1,000 mls @ 1,000 mls/hr IV BOLUS ONE Stop: 09/23/18 10:06 Last Infusion: 09/23/18 10:43 Dose: 0 mls/hr Admin: 09/23/18 09:29 Dose: 1,000 mls/hr Consultations Consultation #1: Dr. Garcia, on-call for Dr. Paige, at this time no reason for D&C. No bleeding or significant pain treat infection. Time: 12:13 Vital Signs - 8 hr 09/23/18 08:37 09/23/18 10:00 09/23/18 10:30 Temperature 97.8 F Pulse Rate 72 73 66 Respiratory Rate 16 18 16 Blood Pressure 113/56 L Blood Pressure [Left Arm] 126/70 123/55 L Pulse Oximetry 97 100 100 09/23/18 11:00 09/23/18 12:25 Temperature Pulse Rate 66 65 Respiratory Rate 18 16 Blood Pressure Blood Pressure [Left Arm] 129/66 131/72 Pulse Oximetry 99 MDM - Female Genitourinary Lab Data Attestation: I reviewed the patient's lab results. Result diagrams: 09/23/18 08:30 09/23/18 08:30 Lab Results 09/23/18 09/23/18 09/23/18 Range/Units 08:30 08:30 08:53 WBC 5.6 (4.5-11.0) X10^3/uL RBC 3.68 L (4.0-5.2) X10^6/uL Hgb 11.5 L (12.0-16.0) g/dL Hct 33.5 L (36-46) % MCV 90.9 (80-100) fL MCH 31.3 (26-34) PG MCHC 34.4 (30-36) % RDW 16.3 H (11.6-14.8) % Plt Count 219 (150-400) X10^3/uL Neut % (Auto) 60.4 (50-75) % Lymph % (Auto) 30.5 (25-40) % [place] % (Auto) 6.7 (3-14) % Eos % (Auto) 1.8 L (2-4) % Baso % (Auto) 0.6 (0-2) % Neut # (Auto) 3400 (0356-2818) /uL Lymph # (Auto) 1700 (1868-3633) /uL [place] # (Auto) 400 (0-900) /uL Eos # (Auto) 100 (0-450) /uL Baso # (Auto) 0 (0-100) /uL Sodium 140 (137-145) mmol/L Potassium 4.3 (3.4-5.1) mmol/L Chloride 108 H (98-107) mmol/L Carbon Dioxide 23 (22-32) mmol/L BUN 15 (7-17) mg/dL Creatinine 0.70 (0.52-1.04) mg/dL Estimated GFR > 60.0 (>60) mL/min BUN/Creatinine Ratio 21.4 (6-22) Glucose 100 (70-100) mg/dL Calcium 9.7 (8.4-10.2) mg/dL Urine Color Urine Appearance Urine pH (4.5-8.0) Ur Specific [place] (1.000-1.035) Urine Protein (Negative) Urine Glucose (UA) (Negative) g/dL Urine Ketones (NEGATIVE) Urine Occult Blood (Negative) Urine Nitrate (Negative) Urine Bilirubin (NEGATIVE) Urine Urobilinogen (0.2) E.U./dL Ur Leukocyte Esterase (NEGATIVE) Urine RBC (0-5/HPF) Urine WBC (0-5/HPF) Ur Squamous Epith Cells Urine Bacteria (None) Ur Culture Indicated? Urine Test Positive H (Negative) 09/23/18 Range/Units 08:53 WBC (4.5-11.0) X10^3/uL RBC (4.0-5.2) X10^6/uL Hgb (12.0-16.0) g/dL Hct (36-46) % MCV (80-100) fL MCH (26-34) PG MCHC (30-36) % RDW (11.6-14.8) % Plt Count (150-400) X10^3/uL Neut % (Auto) (50-75) % Lymph % (Auto) (25-40) % [place] % (Auto) (3-14) % Eos % (Auto) (2-4) % Baso % (Auto) (0-2) % Neut # (Auto) (3291-1871) /uL Lymph # (Auto) (7267-3197) /uL [place] # (Auto) (0-900) /uL Eos # (Auto) (0-450) /uL Baso # (Auto) (0-100) /uL Sodium (137-145) mmol/L Potassium (3.4-5.1) mmol/L Chloride (98-107) mmol/L Carbon Dioxide (22-32) mmol/L BUN (7-17) mg/dL Creatinine (0.52-1.04) mg/dL Estimated GFR (>60) mL/min BUN/Creatinine Ratio (6-22) Glucose (70-100) mg/dL Calcium (8.4-10.2) mg/dL Urine Color Yellow Urine Appearance Clear Urine pH 6.5 (4.5-8.0) Ur Specific [place] 1.020 (1.000-1.035) Urine Protein Negative (Negative) Urine Glucose (UA) Negative (Negative) g/dL Urine Ketones Negative (NEGATIVE) Urine Occult Blood 3+ H (Negative) Urine Nitrate Negative (Negative) Urine Bilirubin Negative (NEGATIVE) Urine Urobilinogen 0.2 (0.2) E.U./dL Ur Leukocyte Esterase Trace H (NEGATIVE) Urine RBC 1-5/hpf (0-5/HPF) Urine WBC 0-1/hpf (0-5/HPF) Ur Squamous Epith Cells 1-5 /hpf Urine Bacteria Occasional (0-1) (None) Ur Culture Indicated? Specimen cultured Urine Test (Negative) Imaging Data Pelvic ultrasound: Radiologist's impression: PROCEDURE: US PELVIC COMPLETE INDICATIONS: RECENT MISCARRIAGE, SYNCOPE TODAY TECHNIQUE: Real-time scanning was performed of the pelvic organs, with image documentation. Additional endovaginal scanning was necessary due to incomplete visualization of the adnexal and endometrial structures by transabdominal scanning. COMPARISON: None. FINDINGS: Transabdominal scanning: Limited scanning through the kidneys shows no hydronephrosis. No pathologic free abdominal or pelvic fluid. Endovaginal scanning: Uterus: Uterus is normal in size at 7.1 x 4.3 x 5.6 cm. The endometrium measures 13.9 mm in combined thickness. There is increased vascularity in the lesion. Ovaries: Ovaries are normal in size and echotexture. The right ovary measures 3.6 x 1.5 x 2.2 cm. The left ovary measures 2.3 x 1.4 x 1.5 cm. IMPRESSION: Thickened endometrium with hyperemia. Cannot rule out retained products of conception. Dictated by: Dana Moffett M.D. on 09/23/2018 at 12:08 [facility] Narrative Medical decision making narrative: Patient still feels the same. She has been offered Tylenol or Motrin multiple times and has refused. I have explained at length that it will take time for her antibiotics to kick in and help her pain and kidney infection. At this time she likely had a vasovagal reaction due to pain and possibly some slight dehydration. She denies any abdominal pain she states that her vaginal bleeding and cramping has improved overall from last week. No indication of ectopic or retained products. Discharge Plan Departure Patient Disposition: Home Clinical Impression: UTI (urinary tract infection) Qualifiers: Urinary tract infection type: acute pyelonephritis Qualified Code(s): N10 - Acute pyelonephritis Discharge Date/Time: 09/23/18 12:33 Interventions: ED Discharge Assessment Last Done: 09/23/18 12:32 Instructions: DI for Kidney Infection Activity Restrictions/Additional Instructions: *You have been diagnosed with kidney infection, vasovagal reaction *What to do: It will take 2-3 days for antibiotics to kick in and spoke you're kidney infection. He likely passed out from pain in dehydration. At this time increase her fluid intake. *Continue to take medications as directed Continue Bactrim 1 pill twice a day for 5 days as previously prescribed *Follow up with your primary care provider in 2-3 days *Return to ER if you should have recurrent episode of passing out, increasing pain or any new, worsening or concerning symptoms Prescriptions: No Action epinephrine 0.3 mg/0.3 mL auto-injector 0.3 mg IM Q10M PRN (Reason: anaphylaxis) Qty: 1 RF: 0 Referrals: Javan Lynn MD [Primary Care Provider] - Tommy Paige MD [Non-Staff] -
[2018-09-23 09:16] LABS: Add Manual Diff / Slide Review NO; Basophils Absolute Auto 0 /uL (0-100); Basophils Percent Auto 0.6 % (0-2); Eosinophils Absolute Auto 100 /uL (0-450); Eosinophils Percent Auto 1.8 % (2-4); Hematocrit 33.5 % (36-46); Hemoglobin 11.5 g/dL (12.0-16.0); Lymphocytes Absolute Auto 1700 /uL (1100-4500); Lymphocytes Percent Auto 30.5 % (25-40); Mean Corpuscular HGB Conc 34.4 % (30-36); Mean Corpuscular Hemoglobin 31.3 PG (26-34); Mean Corpuscular Volume 90.9 fL (80-100); Monocytes Absolute Auto 400 /uL (0-900); Monocytes Percent Auto 6.7 % (3-14); Neutrophils Absolute Auto 3400 /uL (1500-7000); Neutrophils Percent Auto 60.4 % (50-75); Platelet Count 219 X10^3/uL (150-400); Red Blood Cell Count 3.68 X10^6/uL (4.0-5.2); Red Cell Distribution Width 16.3 % (11.6-14.8); White Blood Cell Count 5.6 X10^3/uL (4.5-11.0)
[2018-09-23 09:22] LABS: RBC Urine 1-5/HPF (0-5/HPF); Squamous Epithelial Cell Urine 1-5 /HPF; WBC Urine 0-1/HPF (0-5/HPF)
[2018-09-23 09:23] LABS: BUN Creatinine Ratio 21.4 (6-22); Blood Urea Nitrogen 15 mg/dL (7-17); Calcium 9.7 mg/dL (8.4-10.2); Carbon Dioxide 23 mmol/L (22-32); Chloride 108 mmol/L (98-107); Estimated Glomerular Filt Rate > 60.0 mL/min (>60); Glucose 100 mg/dL (70-100); HEMOLYSIS < 15 (0-50); Potassium 4.3 mmol/L (3.4-5.1); Sodium 140 mmol/L (137-145)
[2018-09-23 09:23] LABS: Bacteria Urine Occasional (0-1); Culture Indicated Urine Specimen Cultured
[2018-09-23] MEDS: SODIUM CHLORIDE 0.9% 1,000 ML 1000 ML IV (09:29)
[2018-09-23 10:00] VITALS: BP 126/70; PULSE 73; RESP 18; O2SAT 100
[2018-09-23 10:30] VITALS: BP 123/55; PULSE 66; RESP 16; O2SAT 100
--- NOTE | 2018-09-23 10:39 | PC.NURSE ---
dr johnson and family at [facility].
--- NOTE | 2018-09-23 10:46 | DI.US.S_ITS ---
PROCEDURE: US PELVIC COMPLETE INDICATIONS: RECENT MISCARRIAGE, SYNCOPE TODAY TECHNIQUE: Real-time scanning was performed of the pelvic organs, with image documentation. Additional endovaginal scanning was necessary due to incomplete visualization of the adnexal and endometrial structures by transabdominal scanning. COMPARISON: None. FINDINGS: Transabdominal scanning: Limited scanning through the kidneys shows no hydronephrosis. No pathologic free abdominal or pelvic fluid. Endovaginal scanning: Uterus: Uterus is normal in size at 7.1 x 4.3 x 5.6 cm. The endometrium measures 13.9 mm in combined thickness. There is increased vascularity in the lesion. Ovaries: Ovaries are normal in size and echotexture. The right ovary measures 3.6 x 1.5 x 2.2 cm. The left ovary measures 2.3 x 1.4 x 1.5 cm. IMPRESSION: Thickened endometrium with hyperemia. Cannot rule out retained products of conception. Dictated by: Dana Moffett M.D. on 09/23/2018 at 12:08 Approved by: Dana Moffett M.D. on 09/23/2018 at 12:10
[2018-09-23 11:00] VITALS: BP 129/66; PULSE 66; PULSE 71; RESP 18; O2SAT 100; O2SAT 99
[2018-09-23 12:25] VITALS: BP 131/72; PULSE 65; RESP 16
== END 2018-09-23 12:33 | disposition home or self-care (01) ==
PROVIDERS: Emergency Provider Emergency Medicine; Family Provider Family Medicine; PCP Family Medicine
DX: N39.0 Urinary tract infection, site not specified (principal); N10 Acute pyelonephritis; R55 Syncope and collapse
CPT/HCPCS: 36415; 36591; 76830; 76856; 80048; 81001; 81025; 85025; 87086; 93005; 96360; 99283; 99285

== ENCOUNTER 2018-11-09 16:21 | Emergency (ER) | payer OTHER, SELFPAY ==
[2018-11-09 16:41] VITALS: BP 142/88; PULSE 99; RESP 16; TEMP 37; O2SAT 99; BMI 33.3
[2018-11-09 17:16] LABS: Bilirubin Urine UA NEGATIVE (NEGATIVE); Glucose Urine UA NEGATIVE (Negative); Ketones Urine UA NEGATIVE (NEGATIVE); Leukocyte Esterase Urine UA 1+ (NEGATIVE); Nitrite Urine UA NEGATIVE (Negative); Occult Blood Urine UA 3+ (Negative); Protein Urine UA 1+ (Negative); Specific Gravity Urine UA 1.025 (1.000-1.035); Urobilinogen Urine UA 0.2 E.U./dL (0.2)
[2018-11-09] MEDS: SODIUM CHLORIDE 0.9% 1,000 ML 150 ML IV (17:37)
[2018-11-09 17:39] LABS: Appearance Urine UA Cloudy; Bacteria Urine Moderate (10-30); Color Urine UA RED; RBC Urine >100/HPF (0-5/HPF); Squamous Epithelial Cell Urine 1-5 /HPF (0-5/HPF); WBC Urine 1-5/HPF (0-5/HPF)
[2018-11-09 17:40] LABS: Culture Indicated Urine Specimen Cultured
[2018-11-09 17:42] LABS: Add Manual Diff / Slide Review NO; Basophils Absolute Auto 0 /uL (0-100); Basophils Percent Auto 0.4 % (0-2); Eosinophils Absolute Auto 100 /uL (0-450); Eosinophils Percent Auto 0.8 % (2-4); Hematocrit 37.1 % (36-46); Hemoglobin 12.4 g/dL (12.0-16.0); Lymphocytes Absolute Auto 1800 /uL (1100-4500); Lymphocytes Percent Auto 24.2 % (25-40); Mean Corpuscular HGB Conc 33.3 % (30-36); Mean Corpuscular Hemoglobin 29.7 PG (26-34); Mean Corpuscular Volume 89.2 fL (80-100); Monocytes Absolute Auto 500 /uL (0-900); Neutrophils Absolute Auto 4900 /uL (1500-7000); Neutrophils Percent Auto 67.6 % (50-75); Platelet Count 231 X10^3/uL (150-400); Red Blood Cell Count 4.16 X10^6/uL (4.0-5.2); Red Cell Distribution Width 15.7 % (11.6-14.8); White Blood Cell Count 7.3 X10^3/uL (4.5-11.0)
[2018-11-09 17:52] LABS: Alanine Aminotransferase 18 IU/L (9-52); Albumin 4.9 g/dL (3.5-5.0); Albumin Globulin Ratio 1.5 (1.0-2.8); Alkaline Phosphatase 61 U/L (38-126); Aspartate Aminotransferase 26 IU/L (14-36); BUN Creatinine Ratio 17.1 (6-22); Bilirubin Total 1.8 mg/dL (0.2-1.3); Blood Urea Nitrogen 12 mg/dL (7-17); Calcium 9.6 mg/dL (8.4-10.2); Carbon Dioxide 26 mmol/L (22-32); Chloride 103 mmol/L (98-107); Estimated Glomerular Filt Rate > 60.0 mL/min (>60); Globulin 3.3 g/dL (1.7-4.1); Glucose 104 mg/dL (70-100); HEMOLYSIS 18 (0-50); Lipase 53 U/L (23-300); Potassium 3.8 mmol/L (3.4-5.1); Sodium 140 mmol/L (137-145); Total Protein 8.2 g/dL (6.3-8.2)
--- NOTE | 2018-11-09 18:20 | ED.FEMALEGU ---
HPI - Female Genitourinary <PAULA King - Last Filed: 11/09/18 22:26> General Chief complaint: Urogenital-Female Stated complaint: URINATING BLOOD Time Seen by Provider: 11/09/18 18:05 Source: patient Mode of arrival: ambulatory Limitations: no limitations History of Present Illness HPI Narrative: The patient is a 23-year-old female with history of UTI nonsmoker who presents with chief complaint of blood in her urine. She states she has been on several antibiotics for urinary tract infections recently. She was started on nitrofurantoin, which was changed to amoxicillin. She has also been on Keflex and Bactrim. She presents records from her healthcare provider illustrate [facility] that her urine culture was positive for hemolytic group B strep. She denies any fevers but complains of general malaise. She denies any nausea vomiting or diarrhea. She complains of some bilateral flank pain. she denies any vaginal itching or vaginal discharge. she complains of dysuria. Last antibiotic ended on the . Related Data Previous Rx's Medication Instructions Recorded epinephrine 0.3 mg IM Q10M PRN #1 each 05/30/18 ciprofloxacin HCl 500 mg PO BID #14 tab 11/09/18 Allergies Allergy/AdvReac Type Severity Reaction Status Date / Time diphenhydramine Allergy Severe Hives Verified 11/09/18 16:41 [From Devan] Review of Systems <PAULA King - Last Filed: 11/09/18 22:26> Review of Systems GENERAL: Denies chills, fatigue, malaise, fever, sweats. HEENT: Denies sinus pain, ear pain, sore throat, difficulty swallowing, dizziness. RESPIRATORY: Denies dyspnea, cough, wheezing, hemoptysis, sputum. CARDIOVASCULAR: Denies chest pain, palpitations, orthopnea, edema, GASTROINTESTINAL: See HPI : See HPI MUSCULOSKELETAL: denies weakness, joint pain, or bony pain SKIN: Denies rash, skin lesions, or other NEUROLOGIC: Denies weakness, headache, numbness, change in speech, confusion, seizures, incoordination. PSYCHIATRIC: No concerning psychosocial issues. 12 point review of systems is negative except for those stated above PFSH <PAULA King - Last Filed: 11/09/18 22:26> Medical History Anaphylaxis (Acute) History of pre-eclampsia (Acute) No significant past surgical history (Acute) Social History Smoking Status: Never smoker Social History Smoking Status: Never smoker Exam <CUCA King - Last Filed: 11/09/18 22:26> Narrative Exam Narrative: GENERAL: This is a well-nourished, well-developed patient, in mild distress. HEAD: Atraumatic. Normocephalic. No temporal or scalp tenderness. EYES: Pupils equal round and reactive. Extraocular motions intact. No scleral icterus. No injection or drainage. ENT: Nose without bleeding, purulent drainage or septal hematoma. Throat without erythema, tonsillar hypertrophy or exudate. Uvula midline. Airway patent. NECK: Trachea midline. No JVD or lymphadenopathy. Supple, nontender, no meningeal signs. CARDIOVASCULAR: Regular rate and rhythm RESPIRATORY: Clear to auscultation. Breath sounds equal bilaterally. No wheezes, rales, or rhonchi. No cough. No increased respiratory effort GASTROINTESTINAL: Abdomen soft, non-tender, nondistended. No hepato-splenomegaly, or palpable masses. No guarding. EXTREMITIES: No clubbing, cyanosis, or edema. No joint tenderness, effusion, or edema noted. BACK: Nontender without deformity or crepitance. CVA tenderness bilaterally. NEURO: AOx3. SKIN: No rash or erythema. Ambulating steadily. Initial Vital Signs Initial Vital Signs: Vital Signs Temperature 98.6 F 11/09/18 16:41 Pulse Rate 99 H 11/09/18 16:41 Respiratory Rate 16 11/09/18 16:41 Blood Pressure 142/88 H 11/09/18 16:41 Pulse Oximetry 99 11/09/18 16:41 <Gisela Herrera DO - Last Filed: 11/10/18 03:42> Initial Vital Signs Initial Vital Signs: Vital Signs Temperature 98.6 F 11/09/18 16:41 Pulse Rate 99 H 11/09/18 16:41 Respiratory Rate 16 11/09/18 16:41 Blood Pressure 142/88 H 11/09/18 16:41 Pulse Oximetry 99 11/09/18 16:41 Course <INDIRA King-BC - Last Filed: 11/09/18 22:26> Orders Ordered: ED Orders 11/09/18 19:03 CT kidney ureter bladder (KUB) Stat Discontinued Medications Ciprofloxacin (Cipro) 500 mg PO NOW ONE Stop: 11/09/18 20:55 Last Admin: 11/09/18 21:27 Dose: 500 mg Sodium Chloride (Normal Saline 0.9%) 1,000 mls @ 150 mls/hr IV CONT MARSHA Last Infusion: 11/09/18 18:50 Dose: 0 mls/hr Infusion: 11/09/18 18:47 Dose: 1,000 mls/hr Admin: 11/09/18 17:37 Dose: 150 mls/hr Sodium Chloride (Normal Saline 0.9%) 1,000 mls @ 1,000 mls/hr IV BOLUS ONE Stop: 11/09/18 19:29 Last Infusion: 11/09/18 21:05 Dose: 0 mls/hr Admin: 11/09/18 18:50 Dose: 1,000 mls/hr Ketorolac Tromethamine (Toradol) 30 mg IV NOW ONE Stop: 11/09/18 20:25 Last Admin: 11/09/18 20:26 Dose: 30 mg Vital Signs - 8 hr 11/09/18 20:24 11/09/18 21:57 Temperature 97.5 F L Pulse Rate 68 78 Respiratory Rate 17 19 Blood Pressure 123/60 Blood Pressure [Left Arm] 124/43 L Pulse Oximetry 100 99 <Gisela Herrera DO - Last Filed: 11/10/18 03:42> Orders Ordered: ED Orders 11/09/18 19:03 CT kidney ureter bladder (KUB) Stat Discontinued Medications Ciprofloxacin (Cipro) 500 mg PO NOW ONE Stop: 11/09/18 20:55 Last Admin: 11/09/18 21:27 Dose: 500 mg Sodium Chloride (Normal Saline 0.9%) 1,000 mls @ 150 mls/hr IV CONT MARSHA Last Infusion: 11/09/18 18:50 Dose: 0 mls/hr Infusion: 11/09/18 18:47 Dose: 1,000 mls/hr Admin: 11/09/18 17:37 Dose: 150 mls/hr Sodium Chloride (Normal Saline 0.9%) 1,000 mls @ 1,000 mls/hr IV BOLUS ONE Stop: 11/09/18 19:29 Last Infusion: 11/09/18 21:05 Dose: 0 mls/hr Admin: 11/09/18 18:50 Dose: 1,000 mls/hr Ketorolac Tromethamine (Toradol) 30 mg IV NOW ONE Stop: 11/09/18 20:25 Last Admin: 11/09/18 20:26 Dose: 30 mg Vital Signs - 8 hr 11/09/18 20:24 11/09/18 21:57 Temperature 97.5 F L Pulse Rate 68 78 Respiratory Rate 17 19 Blood Pressure 123/60 Blood Pressure [Left Arm] 124/43 L Pulse Oximetry 100 99 MDM - Female Genitourinary <INDIRA Kign- - Last Filed: 11/09/18 22:26> Lab Data Result diagrams: 11/09/18 17:29 11/09/18 17:29 Lab Results 11/09/18 11/09/18 11/09/18 Range/Units 16:50 16:50 17:29 WBC 7.3 (4.5-11.0) X10^3/uL RBC 4.16 (4.0-5.2) X10^6/uL Hgb 12.4 (12.0-16.0) g/dL Hct 37.1 (36-46) % MCV 89.2 (80-100) fL MCH 29.7 (26-34) PG MCHC 33.3 (30-36) % RDW 15.7 H (11.6-14.8) % Plt Count 231 (150-400) X10^3/uL Neut % (Auto) 67.6 (50-75) % Lymph % (Auto) 24.2 L (25-40) % [place] % (Auto) 7.0 (3-14) % Eos % (Auto) 0.8 L (2-4) % Baso % (Auto) 0.4 (0-2) % Neut # (Auto) 4900 (9000-9487) /uL Lymph # (Auto) 1800 (6178-4582) /uL [place] # (Auto) 500 (0-900) /uL Eos # (Auto) 100 (0-450) /uL Baso # (Auto) 0 (0-100) /uL Sodium (137-145) mmol/L Potassium (3.4-5.1) mmol/L Chloride (98-107) mmol/L Carbon Dioxide (22-32) mmol/L BUN (7-17) mg/dL Creatinine (0.52-1.04) mg/dL Estimated GFR (>60) mL/min BUN/Creatinine Ratio (6-22) Glucose (70-100) mg/dL Calcium (8.4-10.2) mg/dL Total Bilirubin (0.2-1.3) mg/dL AST (14-36) IU/L ALT (9-52) IU/L Alkaline Phosphatase (38-126) U/L Total Protein (6.3-8.2) g/dL Albumin (3.5-5.0) g/dL Globulin (1.7-4.1) g/dL Albumin/Globulin Ratio (1.0-2.8) Lipase (23-300) U/L Procalcitonin (<0.5) ng/mL Urine Color Red Urine Appearance Cloudy Urine pH 5.0 (4.5-8.0) Ur Specific [place] 1.025 (1.000-1.035) Urine Protein 1+ H (Negative) Urine Glucose (UA) Negative (Negative) g/dL Urine Ketones Negative (NEGATIVE) Urine Occult Blood 3+ H (Negative) Urine Nitrate Negative (Negative) Urine Bilirubin Negative (NEGATIVE) Urine Urobilinogen 0.2 (0.2) E.U./dL Ur Leukocyte Esterase 1+ H (NEGATIVE) Urine RBC >100/hpf H (0-5/HPF) Urine WBC 1-5/hpf (0-5/HPF) Ur Squamous Epith Cells 1-5 /hpf (0-5/HPF) Urine Bacteria Moderate (10-30) H (None) Ur Culture Indicated? Specimen cultured Urine Test Negative (Negative) 11/09/18 11/09/18 Range/Units 17:29 17:29 WBC (4.5-11.0) X10^3/uL RBC (4.0-5.2) X10^6/uL Hgb (12.0-16.0) g/dL Hct (36-46) % MCV (80-100) fL MCH (26-34) PG MCHC (30-36) % RDW (11.6-14.8) % Plt Count (150-400) X10^3/uL Neut % (Auto) (50-75) % Lymph % (Auto) (25-40) % [place] % (Auto) (3-14) % Eos % (Auto) (2-4) % Baso % (Auto) (0-2) % Neut # (Auto) (7278-2315) /uL Lymph # (Auto) (1016-4013) /uL [place] # (Auto) (0-900) /uL Eos # (Auto) (0-450) /uL Baso # (Auto) (0-100) /uL Sodium 140 (137-145) mmol/L Potassium 3.8 (3.4-5.1) mmol/L Chloride 103 (98-107) mmol/L Carbon Dioxide 26 (22-32) mmol/L BUN 12 (7-17) mg/dL Creatinine 0.70 (0.52-1.04) mg/dL Estimated GFR > 60.0 (>60) mL/min BUN/Creatinine Ratio 17.1 (6-22) Glucose 104 H (70-100) mg/dL Calcium 9.6 (8.4-10.2) mg/dL Total Bilirubin 1.8 H (0.2-1.3) mg/dL AST 26 (14-36) IU/L ALT 18 (9-52) IU/L Alkaline Phosphatase 61 (38-126) U/L Total Protein 8.2 (6.3-8.2) g/dL Albumin 4.9 (3.5-5.0) g/dL Globulin 3.3 (1.7-4.1) g/dL Albumin/Globulin Ratio 1.5 (1.0-2.8) Lipase 53 (23-300) U/L Procalcitonin < 0.05 (<0.5) ng/mL Urine Color Urine Appearance Urine pH (4.5-8.0) Ur Specific [place] (1.000-1.035) Urine Protein (Negative) Urine Glucose (UA) (Negative) g/dL Urine Ketones (NEGATIVE) Urine Occult Blood (Negative) Urine Nitrate (Negative) Urine Bilirubin (NEGATIVE) Urine Urobilinogen (0.2) E.U./dL Ur Leukocyte Esterase (NEGATIVE) Urine RBC (0-5/HPF) Urine WBC (0-5/HPF) Ur Squamous Epith Cells (0-5/HPF) Urine Bacteria (None) Ur Culture Indicated? Urine Test (Negative) Imaging Data CT KUB: Radiologist's impression: Manisha Hope 23 F [address] [address] [address] Scan Report Signed Patient: Manisha Hope EMR#: [id number] : 1995Acct:[id number] Age/Sex: te of Service: 11/09/18 Loc: ED Accession Number: [id number] Procedure: CT kidney ureter bladder (KUB) Ordering Provider: Chanda Steve- PROCEDURE: CT KIDNEY URETER BLADDER (KUB) INDICATIONS: hematuria TECHNIQUE: Noncontrast 5 mm thick sections acquired from the diaphragms to the symphysis. 5 mm thick coronal and sagittal reformats were then performed. For radiation dose reduction, the following was used: automated exposure control, adjustment of mA and/or kV according to patient size. COMPARISON: None. FINDINGS: Image quality: Excellent. Lung bases: Lung bases are clear. Heart size is normal. Urinary system: Both kidneys are normal in size. No kidney stones. No hydronephrosis or perinephric fat stranding. Both ureters appear non-dilated throughout their expected courses. Bladder wall thickness is normal; no calcified bladder stones. Other solid organs: Liver is normal in size. Gallbladder is within normal limits. Pancreas is normal in contours. Spleen is enlarged and measures 17 cm in length. No discrete splenic lesion is noted. No adrenal nodules. Peritoneum and bowel: Unenhanced bowel loops demonstrate normal wall thickness and caliber. No free fluid or air. The appendix is visualized and is within normal limits. Nodes and vessels: No retroperitoneal or mesenteric adenopathy by size criteria. Aorta and inferior vena cava are normal in caliber. Abdominal wall: No ventral hernias. Pelvis: No free pelvic fluid. No inguinal hernias or adenopathy. Bones: No suspicious bony lesions. No vertebral body compression fractures. IMPRESSION: 1. No renal stone or hydronephrosis. Normal appearing urinary bladder and bilateral ureters. 2. Splenomegaly, no discrete splenic lesion. 3. No bowel obstruction. Normal appendix. No free fluid or free air. Dictated by: Aren Ramos M.D. on 11/09/2018 at 20:12 Approved by: Aren Ramos M.D. on 11/09/2018 at 20:15 [facility] Narrative Medical decision making narrative: The patient is a 23-year-old female who presents with hematuria. Her CT KUB is normal. for her white blood cell counts are not elevated, her procalcitonin is negative, and she is hemodynamically stable and afebrile. Her kidney function tests are within normal limits. given that she has a urine culture from outside facility that shows group B hemolytic strep but did respond to Keflex, I will try Cipro as per up-to-date recommendations. I discussed the risk of tendon injury. Encouraged patient to follow up with her primary care provider. Discussed return precautions of inability keep down fluids, acute pain, etc. Patient did have many bacteria on her urinalysis. Urine culture is pending at this point time. Patient has no questions or concerns upon discharge. <Gisela Herrera, DO - Last Filed: 11/10/18 03:42> Lab Data Lab Results 11/09/18 11/09/18 11/09/18 Range/Units 16:50 16:50 17:29 WBC 7.3 (4.5-11.0) X10^3/uL RBC 4.16 (4.0-5.2) X10^6/uL Hgb 12.4 (12.0-16.0) g/dL Hct 37.1 (36-46) % MCV 89.2 (80-100) fL MCH 29.7 (26-34) PG MCHC 33.3 (30-36) % RDW 15.7 H (11.6-14.8) % Plt Count 231 (150-400) X10^3/uL Neut % (Auto) 67.6 (50-75) % Lymph % (Auto) 24.2 L (25-40) % [place] % (Auto) 7.0 (3-14) % Eos % (Auto) 0.8 L (2-4) % Baso % (Auto) 0.4 (0-2) % Neut # (Auto) 4900 (0781-4687) /uL Lymph # (Auto) 1800 (6038-2764) /uL [place] # (Auto) 500 (0-900) /uL Eos # (Auto) 100 (0-450) /uL Baso # (Auto) 0 (0-100) /uL Sodium (137-145) mmol/L Potassium (3.4-5.1) mmol/L Chloride (98-107) mmol/L Carbon Dioxide (22-32) mmol/L BUN (7-17) mg/dL Creatinine (0.52-1.04) mg/dL Estimated GFR (>60) mL/min BUN/Creatinine Ratio (6-22) Glucose (70-100) mg/dL Calcium (8.4-10.2) mg/dL Total Bilirubin (0.2-1.3) mg/dL AST (14-36) IU/L ALT (9-52) IU/L Alkaline Phosphatase (38-126) U/L Total Protein (6.3-8.2) g/dL Albumin (3.5-5.0) g/dL Globulin (1.7-4.1) g/dL Albumin/Globulin Ratio (1.0-2.8) Lipase (23-300) U/L Procalcitonin (<0.5) ng/mL Urine Color Red Urine Appearance Cloudy Urine pH 5.0 (4.5-8.0) Ur Specific [place] 1.025 (1.000-1.035) Urine Protein 1+ H (Negative) Urine Glucose (UA) Negative (Negative) g/dL Urine Ketones Negative (NEGATIVE) Urine Occult Blood 3+ H (Negative) Urine Nitrate Negative (Negative) Urine Bilirubin Negative (NEGATIVE) Urine Urobilinogen 0.2 (0.2) E.U./dL Ur Leukocyte Esterase 1+ H (NEGATIVE) Urine RBC >100/hpf H (0-5/HPF) Urine WBC 1-5/hpf (0-5/HPF) Ur Squamous Epith Cells 1-5 /hpf (0-5/HPF) Urine Bacteria Moderate (10-30) H (None) Ur Culture Indicated? Specimen cultured Urine Test Negative (Negative) 11/09/18 11/09/18 Range/Units 17:29 17:29 WBC (4.5-11.0) X10^3/uL RBC (4.0-5.2) X10^6/uL Hgb (12.0-16.0) g/dL Hct (36-46) % MCV (80-100) fL MCH (26-34) PG MCHC (30-36) % RDW (11.6-14.8) % Plt Count (150-400) X10^3/uL Neut % (Auto) (50-75) % Lymph % (Auto) (25-40) % [place] % (Auto) (3-14) % Eos % (Auto) (2-4) % Baso % (Auto) (0-2) % Neut # (Auto) (1845-6543) /uL Lymph # (Auto) (2865-3756) /uL [place] # (Auto) (0-900) /uL Eos # (Auto) (0-450) /uL Baso # (Auto) (0-100) /uL Sodium 140 (137-145) mmol/L Potassium 3.8 (3.4-5.1) mmol/L Chloride 103 (98-107) mmol/L Carbon Dioxide 26 (22-32) mmol/L BUN 12 (7-17) mg/dL Creatinine 0.70 (0.52-1.04) mg/dL Estimated GFR > 60.0 (>60) mL/min BUN/Creatinine Ratio 17.1 (6-22) Glucose 104 H (70-100) mg/dL Calcium 9.6 (8.4-10.2) mg/dL Total Bilirubin 1.8 H (0.2-1.3) mg/dL AST 26 (14-36) IU/L ALT 18 (9-52) IU/L Alkaline Phosphatase 61 (38-126) U/L Total Protein 8.2 (6.3-8.2) g/dL Albumin 4.9 (3.5-5.0) g/dL Globulin 3.3 (1.7-4.1) g/dL Albumin/Globulin Ratio 1.5 (1.0-2.8) Lipase 53 (23-300) U/L Procalcitonin < 0.05 (<0.5) ng/mL Urine Color Urine Appearance Urine pH (4.5-8.0) Ur Specific [place] (1.000-1.035) Urine Protein (Negative) Urine Glucose (UA) (Negative) g/dL Urine Ketones (NEGATIVE) Urine Occult Blood (Negative) Urine Nitrate (Negative) Urine Bilirubin (NEGATIVE) Urine Urobilinogen (0.2) E.U./dL Ur Leukocyte Esterase (NEGATIVE) Urine RBC (0-5/HPF) Urine WBC (0-5/HPF) Ur Squamous Epith Cells (0-5/HPF) Urine Bacteria (None) Ur Culture Indicated? Urine Test (Negative) Discharge Plan Departure Patient Disposition: Home Clinical Impression: Urinary tract infection Qualifiers: Urinary tract infection type: site unspecified Hematuria presence: with hematuria Qualified Code(s): N39.0 - Urinary tract infection, site not specified Discharge Date/Time: 11/09/18 21:59 Interventions: ED Discharge Assessment Last Done: 11/09/18 21:57 Instructions: DI for Urinary Tract Infection (UTI) Activity Restrictions/Additional Instructions: Please follow up with primary care provider. Your CT scan came back normal. however you do have lots of bacteria in your urine. The Cipro should work for the group B strep, but another urine culture is pending. Please come back to the emergency department for any inability keep down fluids, worsening or acute concerns. Prescriptions: New ciprofloxacin HCl 500 mg tablet 500 mg PO BID Qty: 14 RF: 0 No Action epinephrine 0.3 mg/0.3 mL auto-injector 0.3 mg IM Q10M PRN (Reason: anaphylaxis) Qty: 1 RF: 0 Referrals: Natalie Seth [Primary Care Provider] - <Gisela Herrera DO - Last Filed: 11/10/18 03:42> Cosign ED Attending Garcia Attestation: I was immediately available in the department for consultation. Documentation has been reviewed. I agree with assessment and plan.
[2018-11-09] MEDS: SODIUM CHLORIDE 0.9% 1,000 ML 1000 ML IV (18:50)
[2018-11-09 19:03] LABS: Procalcitonin < 0.05 ng/mL (<0.5)
--- NOTE | 2018-11-09 19:03 | DI.CT.S_ITS ---
PROCEDURE: CT KIDNEY URETER BLADDER (KUB) INDICATIONS: hematuria TECHNIQUE: Noncontrast 5 mm thick sections acquired from the diaphragms to the symphysis. 5 mm thick coronal and sagittal reformats were then performed. For radiation dose reduction, the following was used: automated exposure control, adjustment of mA and/or kV according to patient size. COMPARISON: None. FINDINGS: Image quality: Excellent. Lung bases: Lung bases are clear. Heart size is normal. Urinary system: Both kidneys are normal in size. No kidney stones. No hydronephrosis or perinephric fat stranding. Both ureters appear non-dilated throughout their expected courses. Bladder wall thickness is normal; no calcified bladder stones. Other solid organs: Liver is normal in size. Gallbladder is within normal limits. Pancreas is normal in contours. Spleen is enlarged and measures 17 cm in length. No discrete splenic lesion is noted. No adrenal nodules. Peritoneum and bowel: Unenhanced bowel loops demonstrate normal wall thickness and caliber. No free fluid or air. The appendix is visualized and is within normal limits. Nodes and vessels: No retroperitoneal or mesenteric adenopathy by size criteria. Aorta and inferior vena cava are normal in caliber. Abdominal wall: No ventral hernias. Pelvis: No free pelvic fluid. No inguinal hernias or adenopathy. Bones: No suspicious bony lesions. No vertebral body compression fractures. IMPRESSION: 1. No renal stone or hydronephrosis. Normal appearing urinary bladder and bilateral ureters. 2. Splenomegaly, no discrete splenic lesion. 3. No bowel obstruction. Normal appendix. No free fluid or free air. Dictated by: Aren Ramos M.D. on 11/09/2018 at 20:12 Approved by: Aren Ramos M.D. on 11/09/2018 at 20:15
[2018-11-09 19:41] LABS: Pregnancy Test Urine Negative (Negative)
[2018-11-09 20:24] VITALS: BP 124/43; PULSE 68; RESP 17; O2SAT 100
[2018-11-09] MEDS: KETOROLAC 60 MG/2 ML VIAL 30 MG IV (20:26)
[2018-11-09] MEDS: CIPROFLOXACIN 500 MG TABLET PO (21:27)
[2018-11-09 21:57] VITALS: BP 123/60; PULSE 78; RESP 19; TEMP 36.4; O2SAT 99
--- NOTE | 2018-11-09 22:26 | ED_ITS ---
HPI - Female Genitourinary <PAULA King - Last Filed: 11/09/18 22:26> General Chief complaint: Urogenital-Female Stated complaint: URINATING BLOOD Time Seen by Provider: 11/09/18 18:05 Source: patient Mode of arrival: ambulatory Limitations: no limitations History of Present Illness HPI Narrative: The patient is a 23-year-old female with history of UTI nonsmoker who presents with chief complaint of blood in her urine. She states she has been on several antibiotics for urinary tract infections recently. She was started on nitrofurantoin, which was changed to amoxicillin. She has also been on Keflex and Bactrim. She presents records from her healthcare provider illustrate [facility] that her urine culture was positive for hemolytic group B strep. She denies any fevers but complains of general malaise. She denies any nausea vomiting or diarrhea. She complains of some bilateral flank pain. she denies any vaginal itching or vaginal discharge. she complains of dysuria. Last antibiotic ended on the . Related Data Previous Rx's Medication Instructions Recorded epinephrine 0.3 mg IM Q10M PRN #1 each 05/30/18 ciprofloxacin HCl 500 mg PO BID #14 tab 11/09/18 Allergies Allergy/AdvReac Type Severity Reaction Status Date / Time diphenhydramine Allergy Severe Hives Verified 11/09/18 16:41 [From Devan] Review of Systems <PAULA King - Last Filed: 11/09/18 22:26> Review of Systems GENERAL: Denies chills, fatigue, malaise, fever, sweats. HEENT: Denies sinus pain, ear pain, sore throat, difficulty swallowing, dizziness. RESPIRATORY: Denies dyspnea, cough, wheezing, hemoptysis, sputum. CARDIOVASCULAR: Denies chest pain, palpitations, orthopnea, edema, GASTROINTESTINAL: See HPI : See HPI MUSCULOSKELETAL: denies weakness, joint pain, or bony pain SKIN: Denies rash, skin lesions, or other NEUROLOGIC: Denies weakness, headache, numbness, change in speech, confusion, seizures, incoordination. PSYCHIATRIC: No concerning psychosocial issues. 12 point review of systems is negative except for those stated above PFSH <PAULA King - Last Filed: 11/09/18 22:26> Medical History Anaphylaxis (Acute) History of pre-eclampsia (Acute) No significant past surgical history (Acute) Social History Smoking Status: Never smoker Social History Smoking Status: Never smoker Exam <CUCA King - Last Filed: 11/09/18 22:26> Narrative Exam Narrative: GENERAL: This is a well-nourished, well-developed patient, in mild distress. HEAD: Atraumatic. Normocephalic. No temporal or scalp tenderness. EYES: Pupils equal round and reactive. Extraocular motions intact. No scleral icterus. No injection or drainage. ENT: Nose without bleeding, purulent drainage or septal hematoma. Throat without erythema, tonsillar hypertrophy or exudate. Uvula midline. Airway patent. NECK: Trachea midline. No JVD or lymphadenopathy. Supple, nontender, no meningeal signs. CARDIOVASCULAR: Regular rate and rhythm RESPIRATORY: Clear to auscultation. Breath sounds equal bilaterally. No wheezes, rales, or rhonchi. No cough. No increased respiratory effort GASTROINTESTINAL: Abdomen soft, non-tender, nondistended. No hepato-splenomegaly , or palpable masses. No guarding. EXTREMITIES: No clubbing, cyanosis, or edema. No joint tenderness, effusion, or edema noted. BACK: Nontender without deformity or crepitance. CVA tenderness bilaterally. NEURO: AOx3. SKIN: No rash or erythema. Ambulating steadily. Initial Vital Signs Initial Vital Signs: Vital Signs Temperature 98.6 F 11/09/18 16:41 Pulse Rate 99 H 11/09/18 16:41 Respiratory Rate 16 11/09/18 16:41 Blood Pressure 142/88 H 11/09/18 16:41 Pulse Oximetry 99 11/09/18 16:41 <Gisela Herrera DO - Last Filed: 11/10/18 03:42> Initial Vital Signs Initial Vital Signs: Vital Signs Temperature 98.6 F 11/09/18 16:41 Pulse Rate 99 H 11/09/18 16:41 Respiratory Rate 16 11/09/18 16:41 Blood Pressure 142/88 H 11/09/18 16:41 Pulse Oximetry 99 11/09/18 16:41 Course <INDIRA King-BC - Last Filed: 11/09/18 22:26> Orders Ordered: ED Orders 11/09/18 19:03 CT kidney ureter bladder (KUB) Stat Discontinued Medications Ciprofloxacin (Cipro) 500 mg PO NOW ONE Stop: 11/09/18 20:55 Last Admin: 11/09/18 21:27 Dose: 500 mg Sodium Chloride (Normal Saline 0.9%) 1,000 mls @ 150 mls/hr IV CONT MARSHA Last Infusion: 11/09/18 18:50 Dose: 0 mls/hr Infusion: 11/09/18 18:47 Dose: 1,000 mls/hr Admin: 11/09/18 17:37 Dose: 150 mls/hr Sodium Chloride (Normal Saline 0.9%) 1,000 mls @ 1,000 mls/hr IV BOLUS ONE Stop: 11/09/18 19:29 Last Infusion: 11/09/18 21:05 Dose: 0 mls/hr Admin: 11/09/18 18:50 Dose: 1,000 mls/hr Ketorolac Tromethamine (Toradol) 30 mg IV NOW ONE Stop: 11/09/18 20:25 Last Admin: 11/09/18 20:26 Dose: 30 mg Vital Signs - 8 hr 11/09/18 20:24 11/09/18 21:57 Temperature 97.5 F L Pulse Rate 68 78 Respiratory Rate 17 19 Blood Pressure 123/60 Blood Pressure [Left Arm] 124/43 L Pulse Oximetry 100 99 <Gisela Herrera DO - Last Filed: 11/10/18 03:42> Orders Ordered: ED Orders 11/09/18 19:03 CT kidney ureter bladder (KUB) Stat Discontinued Medications Ciprofloxacin (Cipro) 500 mg PO NOW ONE Stop: 11/09/18 20:55 Last Admin: 11/09/18 21:27 Dose: 500 mg Sodium Chloride (Normal Saline 0.9%) 1,000 mls @ 150 mls/hr IV CONT MARSHA Last Infusion: 11/09/18 18:50 Dose: 0 mls/hr Infusion: 11/09/18 18:47 Dose: 1,000 mls/hr Admin: 11/09/18 17:37 Dose: 150 mls/hr Sodium Chloride (Normal Saline 0.9%) 1,000 mls @ 1,000 mls/hr IV BOLUS ONE Stop: 11/09/18 19:29 Last Infusion: 11/09/18 21:05 Dose: 0 mls/hr Admin: 11/09/18 18:50 Dose: 1,000 mls/hr Ketorolac Tromethamine (Toradol) 30 mg IV NOW ONE Stop: 11/09/18 20:25 Last Admin: 11/09/18 20:26 Dose: 30 mg Vital Signs - 8 hr 11/09/18 20:24 11/09/18 21:57 Temperature 97.5 F L Pulse Rate 68 78 Respiratory Rate 17 19 Blood Pressure 123/60 Blood Pressure [Left Arm] 124/43 L Pulse Oximetry 100 99 MDM - Female Genitourinary <INDIRA King- - Last Filed: 11/09/18 22:26> Lab Data Result diagrams: 11/09/18 17:29 11/09/18 17:29 Lab Results 11/09/18 11/09/18 11/09/18 Range/Units 16:50 16:50 17:29 WBC 7.3 (4.5-11.0) X10^3/uL RBC 4.16 (4.0-5.2) X10^6/uL Hgb 12.4 (12.0-16.0) g/dL Hct 37.1 (36-46) % MCV 89.2 (80-100) fL MCH 29.7 (26-34) PG MCHC 33.3 (30-36) % RDW 15.7 H (11.6-14.8) % Plt Count 231 (150-400) X10^3/uL Neut % (Auto) 67.6 (50-75) % Lymph % (Auto) 24.2 L (25-40) % [place] % (Auto) 7.0 (3-14) % Eos % (Auto) 0.8 L (2-4) % Baso % (Auto) 0.4 (0-2) % Neut # (Auto) 4900 (2221-4369) /uL Lymph # (Auto) 1800 (3800-9254) /uL [place] # (Auto) 500 (0-900) /uL Eos # (Auto) 100 (0-450) /uL Baso # (Auto) 0 (0-100) /uL Sodium (137-145) mmol/L Potassium (3.4-5.1) mmol/L Chloride (98-107) mmol/L Carbon Dioxide (22-32) mmol/L BUN (7-17) mg/dL Creatinine (0.52-1.04) mg/dL Estimated GFR (>60) mL/min BUN/Creatinine Ratio (6-22) Glucose (70-100) mg/dL Calcium (8.4-10.2) mg/dL Total Bilirubin (0.2-1.3) mg/dL AST (14-36) IU/L ALT (9-52) IU/L Alkaline Phosphatase (38-126) U/L Total Protein (6.3-8.2) g/dL Albumin (3.5-5.0) g/dL Globulin (1.7-4.1) g/dL Albumin/Globulin Ratio (1.0-2.8) Lipase (23-300) U/L Procalcitonin (<0.5) ng/mL Urine Color Red Urine Appearance Cloudy Urine pH 5.0 (4.5-8.0) Ur Specific [place] 1.025 (1.000-1.035) Urine Protein 1+ H (Negative) Urine Glucose (UA) Negative (Negative) g/dL Urine Ketones Negative (NEGATIVE) Urine Occult Blood 3+ H (Negative) Urine Nitrate Negative (Negative) Urine Bilirubin Negative (NEGATIVE) Urine Urobilinogen 0.2 (0.2) E.U./dL Ur Leukocyte Esterase 1+ H (NEGATIVE) Urine RBC >100/hpf H (0-5/HPF) Urine WBC 1-5/hpf (0-5/HPF) Ur Squamous Epith Cells 1-5 /hpf (0-5/HPF) Urine Bacteria Moderate (10-30) H (None) Ur Culture Indicated? Specimen cultured Urine Test Negative (Negative) 11/09/18 11/09/18 Range/Units 17:29 17:29 WBC (4.5-11.0) X10^3/uL RBC (4.0-5.2) X10^6/uL Hgb (12.0-16.0) g/dL Hct (36-46) % MCV (80-100) fL MCH (26-34) PG MCHC (30-36) % RDW (11.6-14.8) % Plt Count (150-400) X10^3/uL Neut % (Auto) (50-75) % Lymph % (Auto) (25-40) % [place] % (Auto) (3-14) % Eos % (Auto) (2-4) % Baso % (Auto) (0-2) % Neut # (Auto) (2369-6875) /uL Lymph # (Auto) (5041-5085) /uL [place] # (Auto) (0-900) /uL Eos # (Auto) (0-450) /uL Baso # (Auto) (0-100) /uL Sodium 140 (137-145) mmol/L Potassium 3.8 (3.4-5.1) mmol/L Chloride 103 (98-107) mmol/L Carbon Dioxide 26 (22-32) mmol/L BUN 12 (7-17) mg/dL Creatinine 0.70 (0.52-1.04) mg/dL Estimated GFR > 60.0 (>60) mL/min BUN/Creatinine Ratio 17.1 (6-22) Glucose 104 H (70-100) mg/dL Calcium 9.6 (8.4-10.2) mg/dL Total Bilirubin 1.8 H (0.2-1.3) mg/dL AST 26 (14-36) IU/L ALT 18 (9-52) IU/L Alkaline Phosphatase 61 (38-126) U/L Total Protein 8.2 (6.3-8.2) g/dL Albumin 4.9 (3.5-5.0) g/dL Globulin 3.3 (1.7-4.1) g/dL Albumin/Globulin Ratio 1.5 (1.0-2.8) Lipase 53 (23-300) U/L Procalcitonin < 0.05 (<0.5) ng/mL Urine Color Urine Appearance Urine pH (4.5-8.0) Ur Specific [place] (1.000-1.035) Urine Protein (Negative) Urine Glucose (UA) (Negative) g/dL Urine Ketones (NEGATIVE) Urine Occult Blood (Negative) Urine Nitrate (Negative) Urine Bilirubin (NEGATIVE) Urine Urobilinogen (0.2) E.U./dL Ur Leukocyte Esterase (NEGATIVE) Urine RBC (0-5/HPF) Urine WBC (0-5/HPF) Ur Squamous Epith Cells (0-5/HPF) Urine Bacteria (None) Ur Culture Indicated? Urine Test (Negative) Imaging Data CT KUB: Radiologist's impression: Manisha Hope 23 F [address] [address] [address] Scan Report Signed Patient: Manisha Hope EMR#: [id number] : 1995Acct:[id number] Age/Sex: te of Service: 11/09/18 Loc: ED Accession Number: [id number] Procedure: CT kidney ureter bladder (KUB) Ordering Provider: Chanda Steve- PROCEDURE: CT KIDNEY URETER BLADDER (KUB) INDICATIONS: hematuria TECHNIQUE: Noncontrast 5 mm thick sections acquired from the diaphragms to the symphysis. 5 mm thick coronal and sagittal reformats were then performed. For radiation dose reduction, the following was used: automated exposure control, adjustment of mA and/or kV according to patient size. COMPARISON: None. FINDINGS: Image quality: Excellent. Lung bases: Lung bases are clear. Heart size is normal. Urinary system: Both kidneys are normal in size. No kidney stones. No hydronephrosis or perinephric fat stranding. Both ureters appear non-dilated throughout their expected courses. Bladder wall thickness is normal; no calcified bladder stones. Other solid organs: Liver is normal in size. Gallbladder is within normal limits. Pancreas is normal in contours. Spleen is enlarged and measures 17 cm in length. No discrete splenic lesion is noted. No adrenal nodules. Peritoneum and bowel: Unenhanced bowel loops demonstrate normal wall thickness and caliber. No free fluid or air. The appendix is visualized and is within normal limits. Nodes and vessels: No retroperitoneal or mesenteric adenopathy by size criteria. Aorta and inferior vena cava are normal in caliber. Abdominal wall: No ventral hernias. Pelvis: No free pelvic fluid. No inguinal hernias or adenopathy. Bones: No suspicious bony lesions. No vertebral body compression fractures. IMPRESSION: 1. No renal stone or hydronephrosis. Normal appearing urinary bladder and bilateral ureters. 2. Splenomegaly, no discrete splenic lesion. 3. No bowel obstruction. Normal appendix. No free fluid or free air. Dictated by: Aren Ramos M.D. on 11/09/2018 at 20:12 Approved by: Aren Ramos M.D. on 11/09/2018 at 20:15 [facility] Narrative Medical decision making narrative: The patient is a 23-year-old female who presents with hematuria. Her CT KUB is normal. for her white blood cell counts are not elevated, her procalcitonin is negative, and she is hemodynamically stable and afebrile. Her kidney function tests are within normal limits. given that she has a urine culture from outside facility that shows group B hemolytic strep but did respond to Keflex, I will try Cipro as per up-to-date recommendations. I discussed the risk of tendon injury. Encouraged patient to follow up with her primary care provider. Discussed return precautions of inability keep down fluids, acute pain, etc. Patient did have many bacteria on her urinalysis. Urine culture is pending at this point time. Patient has no questions or concerns upon discharge. <Gisela Herrera, DO - Last Filed: 11/10/18 03:42> Lab Data Lab Results 11/09/18 11/09/18 11/09/18 Range/Units 16:50 16:50 17:29 WBC 7.3 (4.5-11.0) X10^3/uL RBC 4.16 (4.0-5.2) X10^6/uL Hgb 12.4 (12.0-16.0) g/dL Hct 37.1 (36-46) % MCV 89.2 (80-100) fL MCH 29.7 (26-34) PG MCHC 33.3 (30-36) % RDW 15.7 H (11.6-14.8) % Plt Count 231 (150-400) X10^3/uL Neut % (Auto) 67.6 (50-75) % Lymph % (Auto) 24.2 L (25-40) % [place] % (Auto) 7.0 (3-14) % Eos % (Auto) 0.8 L (2-4) % Baso % (Auto) 0.4 (0-2) % Neut # (Auto) 4900 (6981-9827) /uL Lymph # (Auto) 1800 (1569-0222) /uL [place] # (Auto) 500 (0-900) /uL Eos # (Auto) 100 (0-450) /uL Baso # (Auto) 0 (0-100) /uL Sodium (137-145) mmol/L Potassium (3.4-5.1) mmol/L Chloride (98-107) mmol/L Carbon Dioxide (22-32) mmol/L BUN (7-17) mg/dL Creatinine (0.52-1.04) mg/dL Estimated GFR (>60) mL/min BUN/Creatinine Ratio (6-22) Glucose (70-100) mg/dL Calcium (8.4-10.2) mg/dL Total Bilirubin (0.2-1.3) mg/dL AST (14-36) IU/L ALT (9-52) IU/L Alkaline Phosphatase (38-126) U/L Total Protein (6.3-8.2) g/dL Albumin (3.5-5.0) g/dL Globulin (1.7-4.1) g/dL Albumin/Globulin Ratio (1.0-2.8) Lipase (23-300) U/L Procalcitonin (<0.5) ng/mL Urine Color Red Urine Appearance Cloudy Urine pH 5.0 (4.5-8.0) Ur Specific [place] 1.025 (1.000-1.035) Urine Protein 1+ H (Negative) Urine Glucose (UA) Negative (Negative) g/dL Urine Ketones Negative (NEGATIVE) Urine Occult Blood 3+ H (Negative) Urine Nitrate Negative (Negative) Urine Bilirubin Negative (NEGATIVE) Urine Urobilinogen 0.2 (0.2) E.U./dL Ur Leukocyte Esterase 1+ H (NEGATIVE) Urine RBC >100/hpf H (0-5/HPF) Urine WBC 1-5/hpf (0-5/HPF) Ur Squamous Epith Cells 1-5 /hpf (0-5/HPF) Urine Bacteria Moderate (10-30) H (None) Ur Culture Indicated? Specimen cultured Urine Test Negative (Negative) 11/09/18 11/09/18 Range/Units 17:29 17:29 WBC (4.5-11.0) X10^3/uL RBC (4.0-5.2) X10^6/uL Hgb (12.0-16.0) g/dL Hct (36-46) % MCV (80-100) fL MCH (26-34) PG MCHC (30-36) % RDW (11.6-14.8) % Plt Count (150-400) X10^3/uL Neut % (Auto) (50-75) % Lymph % (Auto) (25-40) % [place] % (Auto) (3-14) % Eos % (Auto) (2-4) % Baso % (Auto) (0-2) % Neut # (Auto) (9280-2211) /uL Lymph # (Auto) (9893-8207) /uL [place] # (Auto) (0-900) /uL Eos # (Auto) (0-450) /uL Baso # (Auto) (0-100) /uL Sodium 140 (137-145) mmol/L Potassium 3.8 (3.4-5.1) mmol/L Chloride 103 (98-107) mmol/L Carbon Dioxide 26 (22-32) mmol/L BUN 12 (7-17) mg/dL Creatinine 0.70 (0.52-1.04) mg/dL Estimated GFR > 60.0 (>60) mL/min BUN/Creatinine Ratio 17.1 (6-22) Glucose 104 H (70-100) mg/dL Calcium 9.6 (8.4-10.2) mg/dL Total Bilirubin 1.8 H (0.2-1.3) mg/dL AST 26 (14-36) IU/L ALT 18 (9-52) IU/L Alkaline Phosphatase 61 (38-126) U/L Total Protein 8.2 (6.3-8.2) g/dL Albumin 4.9 (3.5-5.0) g/dL Globulin 3.3 (1.7-4.1) g/dL Albumin/Globulin Ratio 1.5 (1.0-2.8) Lipase 53 (23-300) U/L Procalcitonin < 0.05 (<0.5) ng/mL Urine Color Urine Appearance Urine pH (4.5-8.0) Ur Specific [place] (1.000-1.035) Urine Protein (Negative) Urine Glucose (UA) (Negative) g/dL Urine Ketones (NEGATIVE) Urine Occult Blood (Negative) Urine Nitrate (Negative) Urine Bilirubin (NEGATIVE) Urine Urobilinogen (0.2) E.U./dL Ur Leukocyte Esterase (NEGATIVE) Urine RBC (0-5/HPF) Urine WBC (0-5/HPF) Ur Squamous Epith Cells (0-5/HPF) Urine Bacteria (None) Ur Culture Indicated? Urine Test (Negative) Discharge Plan Departure Patient Disposition: Home Clinical Impression: Urinary tract infection Qualifiers: Urinary tract infection type: site unspecified Hematuria presence: with hematuria Qualified Code(s): N39.0 - Urinary tract infection, site not specified Discharge Date/Time: 11/09/18 21:59 Interventions: ED Discharge Assessment Last Done: 11/09/18 21:57 Instructions: DI for Urinary Tract Infection (UTI) Activity Restrictions/Additional Instructions: Please follow up with primary care provider. Your CT scan came back normal. however you do have lots of bacteria in your urine. The Cipro should work for the group B strep, but another urine culture is pending. Please come back to the emergency department for any inability keep down fluids, worsening or acute concerns. Prescriptions: New ciprofloxacin HCl 500 mg tablet 500 mg PO BID Qty: 14 RF: 0 No Action epinephrine 0.3 mg/0.3 mL auto-injector 0.3 mg IM Q10M PRN (Reason: anaphylaxis) Qty: 1 RF: 0 Referrals: Natalie Seth [Primary Care Provider] - <Gisela Herrera DO - Last Filed: 11/10/18 03:42> Cosign ED Attending Garcia Attestation: I was immediately available in the department for consultation. Documentation has been reviewed. I agree with assessment and plan.
== END 2018-11-09 21:59 | disposition home or self-care (01) ==
PROVIDERS: Emergency Medicine; Emergency Provider Nurse Practitioner Family; Family Provider Physician Assistant Medical; PCP Physician Assistant Medical
DX: N39.0 Urinary tract infection, site not specified (principal); R31.9 Hematuria, unspecified
CPT/HCPCS: 36591; 74176; 80053; 81001; 81025; 83690; 84145; 85025; 87077; 87086; 87186; 96361; 96374; 99283; 99284; J1885

== ENCOUNTER 2019-02-21 18:17 | Emergency (ER) | payer OTHER, SELFPAY ==
[2019-02-21 18:23] VITALS: BP 167/97; PULSE 91; RESP 18; O2SAT 99
--- NOTE | 2019-02-21 18:33 | DI.RAD.S_ITS ---
PROCEDURE: XR CHEST 1V INDICATIONS: Vomiting blood eval for free air TECHNIQUE: One view of the chest was acquired. COMPARISON: [facility], CR, XR CHEST 2V, 06/19/2018, 18:52. FINDINGS: Surgical changes and devices: None. Lungs and pleura: Lungs are clear. No pleural effusions or pneumothorax. Mediastinum: Mediastinal contours appear normal. Heart size is normal. Bones and chest wall: No suspicious bony lesions. Overlying soft tissues appear unremarkable. IMPRESSION: No acute disease. Dictated by: Dawson Land M.D. on 02/21/2019 at 19:16 Approved by: Dawson Land M.D. on 02/21/2019 at 19:17
--- NOTE | 2019-02-21 18:34 | ED_ITS ---
HPI - GI Bleed General Chief complaint: GI Bleed Stated complaint: STATES UPPER GI BLEEDING Time Seen by Provider: 02/21/19 18:31 Source: patient Mode of arrival: ambulatory Limitations: no limitations History of Present Illness HPI Narrative: Patient is a 24-year-old female. She is seen by this [facility] for issues with her ?GI tract? 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 She also states that there are issues with her B and T cells. She states that she does not carry a specific diagnosis. All of these issues were found out after she was having diarrheal illnesses. She states that for the past couple days she has had problems with nausea and vomiting. She also states that over the past day or so she has had blood in her vomit. She was told to come in by her oncologist. She is scheduled for a upper GI study in April. Related Data Previous Rx's Medication Instructions Recorded epinephrine 0.3 mg IM Q10M PRN #1 each 05/30/18 ciprofloxacin HCl 500 mg PO BID #14 tab 11/09/18 esomeprazole magnesium [Nexium 20 mg PO DAILY #30 cap 02/21/19 24HR] Allergies Allergy/AdvReac Type Severity Reaction Status Date / Time diphenhydramine Allergy Severe Hives Verified 11/09/18 16:41 [From Devan] Review of Systems Constitutional Denies fever(s) and Denies headache(s) ENT Ears, Nose, Mouth, and Throat: Denies headache(s) Cardiovascular Denies chest pain and Denies dyspnea Respiratory Denies dyspnea Gastrointestinal Gastrointestinal: Denies abdominal pain, Denies change in stool character, Reports nausea, Reports vomiting and Reports hematemesis Genitourinary Denies dysuria Musculoskeletal Denies myalgias and Denies arthralgias Integumentary/Breasts Denies rash Neurologic Denies behavioral changes and Denies headache(s) Psychiatric Denies behavioral changes Hematologic/Lymphatic Denies easy bleeding and Denies easy bruising [facility] Medical History Anaphylaxis (Acute) History of pre-eclampsia (Acute) No significant past surgical history (Acute) Social History Smoking Status: Never smoker Exam Initial Vital Signs Initial Vital Signs: Vital Signs Pulse Rate 91 H 02/21/19 18:23 Respiratory Rate 18 02/21/19 18:23 Blood Pressure 167/97 H 02/21/19 18:23 Pulse Oximetry 99 02/21/19 18:23 Const General: cooperative, healthy appearing, comfortable, well developed, well groom ed and No acute distress Orientation: alert, awake and oriented x3 HENMT Head: normal to inspection Resp Effort & Inspection: normal respiratory effort Auscultation: clear to auscultation bilaterally Cardio Rate: regular rate Rhythm: regular rhythm Pulses: radial pulses present GI Inspection: non-distended Palpation: soft, No firm and No tender Skin Lesions: no lesions Neuro General: alert and awake Cognition: normal cognition Speech: speech normal Motor: muscle tone normal throughout Extrem General: normal to inspection and capillary refill normal Psych Appearance: grossly normal and well kempt Scores GCS [place] coma scale eye opening: Spontaneous Anika coma scale verbal response: Orientated Course Orders Ordered: ED Orders 02/21/19 18:30 Complete Blood Count AUTO DIFF Stat Comprehensive Metabolic Panel Stat Type and Screen Stat 02/21/19 18:33 XR chest 1V Stat 02/21/19 18:35 Urine Culture Stat Urine Microscopic Stat Discontinued Medications Pantoprazole Sodium (Protonix) 40 mg IV NOW ONE Stop: 02/21/19 18:48 Last Admin: 02/21/19 18:54 Dose: 40 mg Vital Signs - 8 hr 02/21/19 18:23 02/21/19 20:30 Pulse Rate 91 H 81 Respiratory Rate 18 16 Blood Pressure 167/97 H 124/74 Pulse Oximetry 99 98 MDM - GI Bleed Lab Data Attestation: I reviewed the patient's lab results. Result diagrams: 02/21/19 18:30 02/21/19 18:30 Lab Results 02/21/19 02/21/19 02/21/19 Range/Units 18:30 18:30 18:30 WBC 7.4 (4.5-11.0) X10^3/uL RBC 3.86 L (4.0-5.2) X10^6/uL Hgb 11.7 L (12.0-16.0) g/dL Hct 33.2 L (36-46) % MCV 86.0 (80-100) fL MCH 30.4 (26-34) PG MCHC 35.3 (30-36) % RDW 16.4 H (11.6-14.8) % Plt Count 240 (150-400) X10^3/uL Neut % (Auto) 52.3 (50-75) % Lymph % (Auto) 35.6 (25-40) % Bartholomew % (Auto) 8.1 (3-14) % Eos % (Auto) 2.5 (2-4) % Baso % (Auto) 1.5 (0-2) % Neut # (Auto) 3900 (5959-9510) /uL Lymph # (Auto) 2600 (4470-9629) /uL Bartholomew # (Auto) 600 (0-900) /uL Eos # (Auto) 200 (0-450) /uL Baso # (Auto) 100 (0-100) /uL Sodium 140 (137-145) mmol/L Potassium 3.9 (3.4-5.1) mmol/L Chloride 104 (98-107) mmol/L Carbon Dioxide 28 (22-32) mmol/L BUN 15 (7-17) mg/dL Creatinine 0.70 (0.52-1.04) mg/dL Estimated GFR > 60.0 (>60) mL/min BUN/Creatinine Ratio 21.4 (6-22) Glucose 103 H (70-100) mg/dL Calcium 9.9 (8.4-10.2) mg/dL Total Bilirubin 1.2 (0.2-1.3) mg/dL AST 21 (14-36) IU/L ALT 8 L (9-52) IU/L Alkaline Phosphatase 77 (38-126) U/L Total Protein 7.9 (6.3-8.2) g/dL Albumin 4.7 (3.5-5.0) g/dL Globulin 3.2 (1.7-4.1) g/dL Albumin/Globulin Ratio 1.5 (1.0-2.8) Urine RBC (0-5/HPF) Urine WBC (0-5/HPF) Ur Squamous Epith Cells (0-5/HPF) Ur Transition Epith Cell (0-5/HPF) Urine Bacteria (None) Hyaline Casts (None) Urine Mucus (Negative) Ur Culture Indicated? Blood Type O Positive Antibody Screen Negative 02/21/19 Range/Units 18:35 WBC (4.5-11.0) X10^3/uL RBC (4.0-5.2) X10^6/uL Hgb (12.0-16.0) g/dL Hct (36-46) % MCV (80-100) fL MCH (26-34) PG MCHC (30-36) % RDW (11.6-14.8) % Plt Count (150-400) X10^3/uL Neut % (Auto) (50-75) % Lymph % (Auto) (25-40) % Bartholomew % (Auto) (3-14) % Eos % (Auto) (2-4) % Baso % (Auto) (0-2) % Neut # (Auto) (2062-3285) /uL Lymph # (Auto) (1290-6174) /uL Bartholomew # (Auto) (0-900) /uL Eos # (Auto) (0-450) /uL Baso # (Auto) (0-100) /uL Sodium (137-145) mmol/L Potassium (3.4-5.1) mmol/L Chloride (98-107) mmol/L Carbon Dioxide (22-32) mmol/L BUN (7-17) mg/dL Creatinine (0.52-1.04) mg/dL Estimated GFR (>60) mL/min BUN/Creatinine Ratio (6-22) Glucose (70-100) mg/dL Calcium (8.4-10.2) mg/dL Total Bilirubin (0.2-1.3) mg/dL AST (14-36) IU/L ALT (9-52) IU/L Alkaline Phosphatase (38-126) U/L Total Protein (6.3-8.2) g/dL Albumin (3.5-5.0) g/dL Globulin (1.7-4.1) g/dL Albumin/Globulin Ratio (1.0-2.8) Urine RBC 1-5/hpf D (0-5/HPF) Urine WBC >100/hpf H (0-5/HPF) Ur Squamous Epith Cells 1-5 /hpf (0-5/HPF) Ur Transition Epith Cell 1-5/hpf (0-5/HPF) Urine Bacteria Moderate (10-30) H (None) Hyaline Casts 1-5/lpf (None) Urine Mucus 1+ H (Negative) Ur Culture Indicated? Specimen cultured Blood Type Antibody Screen Point of Care Testing Test Results Negative Urine Dip Bedside Urine Glucose Negative Bedside Urine Bilirubin + 1 Bedside Urine Ketone +/- 5 Urine Specific Rienzi 1.025 Bedside Urine Occult Blood - Negative Bedside Urine pH 6.0 Bedside Urine Protein +/- 15 Bedside Urine Urobilinogen +/- 1mg Bedside Urine Nitrite - Negative Bedside Urine Leukocytes + 70 Esterase Imaging Data Chest x-ray: Radiologist's impression: [place] [id number] [place] [id number] XRay Report Signed Patient: Manisha Hope EMR#: [id number] : 1995Acct:[id number] Age/Sex: 24 / FDate of Service: 02/21/19 Loc: ED Accession Number: [id number] Procedure: XR chest 1V Ordering Provider: Lawrence Galicia D.O. PROCEDURE: XR CHEST 1V INDICATIONS: Vomiting blood eval for free air TECHNIQUE: One view of the chest was acquired. COMPARISON: [facility], , XR CHEST 2V, 06/19/2018, 18:52. FINDINGS: Surgical changes and devices: None. Lungs and pleura: Lungs are clear. No pleural effusions or pneumothorax. Mediastinum: Mediastinal contours appear normal. Heart size is normal. Bones and chest wall: No suspicious bony lesions. Overlying soft tissues appear unremarkable. IMPRESSION: No acute disease. Dictated by: Dawson Land M.D. on [facility] Narrative Medical decision making narrative: Patient looks well. She is nontoxic. No respiratory distress. No free air under the diaphragm on the chest x-ray. She is not anemic. She has had no vomiting since being here in the emergency department. There is no indication for blood transfusion. I do not feel there is any indication for emergent admission to the hospital and upper GI. I discussed this all with the patient. She was given Protonix. Rest under a with Nexium. She is not currently on any ulcer/reflux medications. Informed her that she needed talk with her primary doctor. I also informed her that she could call her GI doctor to see if they can move her appointment up if they feel it is needed. Patient was given return precautions and follow-up instructions. She expressed understanding and agreement plan Discharge Plan Departure Patient Disposition: Home Clinical Impression: Vomiting Qualifiers: Vomiting type: unspecified Vomiting Intractability: non-intractable Nausea presence: with nausea Qualified Code(s): R11.2 - Nausea with vomiting, unspecified Discharge Date/Time: 02/21/19 20:52 Interventions: ED Discharge Assessment Last Done: 02/21/19 20:30 Instructions: DI for Peptic Ulcer, Gastrointestinal Bleeding Activity Restrictions/Additional Instructions: I recommend you continue all of your medications as directed. Tomorrow contact your GI provider to discuss further workup and if they feel like he needed to move the scope up it would have to be under their recommendations. Return to the emergency department for any worsening symptoms Prescriptions: New esomeprazole magnesium [Nexium 24HR] 20 mg capsule,delayed release(DR/EC) 20 mg PO DAILY Qty: 30 RF: 0 No Action epinephrine 0.3 mg/0.3 mL auto-injector 0.3 mg IM Q10M PRN (Reason: anaphylaxis) Qty: 1 RF: 0 ciprofloxacin HCl 500 mg tablet 500 mg PO BID Qty: 14 RF: 0 Referrals: Natalie Seth [Primary Care Provider] -
[2019-02-21 18:50] LABS: Add Manual Diff / Slide Review NO; Basophils Absolute Auto 100 /uL (0-100); Basophils Percent Auto 1.5 % (0-2); Eosinophils Absolute Auto 200 /uL (0-450); Eosinophils Percent Auto 2.5 % (2-4); Hematocrit 33.2 % (36-46); Hemoglobin 11.7 g/dL (12.0-16.0); Lymphocytes Absolute Auto 2600 /uL (1100-4500); Lymphocytes Percent Auto 35.6 % (25-40); Mean Corpuscular HGB Conc 35.3 % (30-36); Mean Corpuscular Hemoglobin 30.4 PG (26-34); Monocytes Absolute Auto 600 /uL (0-900); Monocytes Percent Auto 8.1 % (3-14); Neutrophils Absolute Auto 3900 /uL (1500-7000); Neutrophils Percent Auto 52.3 % (50-75); Platelet Count 240 X10^3/uL (150-400); Red Blood Cell Count 3.86 X10^6/uL (4.0-5.2); Red Cell Distribution Width 16.4 % (11.6-14.8); White Blood Cell Count 7.4 X10^3/uL (4.5-11.0)
[2019-02-21] MEDS: PANTOPRAZOLE 40 MG VIAL IV (18:54)
[2019-02-21 18:57] LABS: Alanine Aminotransferase 8 IU/L (9-52); Albumin 4.7 g/dL (3.5-5.0); Albumin Globulin Ratio 1.5 (1.0-2.8); Alkaline Phosphatase 77 U/L (38-126); Aspartate Aminotransferase 21 IU/L (14-36); BUN Creatinine Ratio 21.4 (6-22); Bilirubin Total 1.2 mg/dL (0.2-1.3); Blood Urea Nitrogen 15 mg/dL (7-17); Calcium 9.9 mg/dL (8.4-10.2); Carbon Dioxide 28 mmol/L (22-32); Chloride 104 mmol/L (98-107); Estimated Glomerular Filt Rate > 60.0 mL/min (>60); Globulin 3.2 g/dL (1.7-4.1); Glucose 103 mg/dL (70-100); HEMOLYSIS < 15 (0-50); Potassium 3.9 mmol/L (3.4-5.1); Sodium 140 mmol/L (137-145); Total Protein 7.9 g/dL (6.3-8.2)
[2019-02-21 19:49] LABS: Bacteria Urine Moderate (10-30); Culture Indicated Urine Specimen Cultured; Hyaline Casts Urine 1-5/LPF; Mucus Urine 1+ (Negative); RBC Urine 1-5/HPF (0-5/HPF); Squamous Epithelial Cell Urine 1-5 /HPF (0-5/HPF); Transitional Epi Cells Urine 1-5/HPF (0-5/HPF); WBC Urine >100/HPF (0-5/HPF)
[2019-02-21 20:30] VITALS: BP 124/74; PULSE 81; RESP 16; O2SAT 98
== END 2019-02-21 20:52 | disposition home or self-care (01) ==
PROVIDERS: Emergency Provider Emergency Medicine; Family Provider Physician Assistant Medical; PCP Physician Assistant Medical
DX: R11.2 Nausea with vomiting, unspecified (principal)
CPT/HCPCS: 36591; 71045; 80053; 81003; 81015; 81025; 85025; 86850; 86900; 86901; 87086; 96374; 99282; 99284; C9113